=== PATIENT | female | born 1945 | race Caucasian/White ===

== ENCOUNTER 2019-09-28 04:59 | Day surgery (SDC) | payer MEDICARE, OTHER ==
[2019-09-24 11:58] LABS: BASOPHILS # (AUTO) 0.1 X10'3 (0-0.2); BASOPHILS % (AUTO) 1.5 % (0-1); EOSINOPHILS # (AUTO) 0.3 X10'3 (0-0.9); EOSINOPHILS % (AUTO) 4.8 % (0-6); HEMATOCRIT 37.4 % (35.0-45.0); HEMOGLOBIN 12.4 g/dl (12.0-16.0); LYMPHOCYTES # (AUTO) 1.1 X10'3 (1.1-4.8); MEAN CORPUSCULAR HEMOGLOBIN 27.9 PG (27.0-31.0); MEAN CORPUSCULAR HGB CONC 33.1 g/dL (33.0-36.5); MEAN CORPUSCULAR VOLUME 84.2 FL (78-98); MEAN PLATELET VOLUME 7.6 FL (7.4-10.4); MONOCYTES # (AUTO) 0.7 X10'3 (0-0.9); MONOCYTES % (AUTO) 13.6 % (2-12); NEUTROPHILS # (AUTO) 3.3 X10'3 (1.8-7.7); NEUTROPHILS % (AUTO) 60.1 % (42-75); PLATELET COUNT 255 X10'3 (140-440); RED BLOOD COUNT 4.44 X10'6 (4.20-5.60); RED CELL DISTRIBUTION WIDTH 16.2 % (11.5-14.5); WHITE BLOOD COUNT 5.5 X10'3 (4.5-11.0)
[2019-09-24 12:11] LABS: ALBUMIN 3.8 G/DL (3.4-5.0); ANION GAP 8 (8-16); BLOOD UREA NITROGEN 21 MG/DL (7-18); BUN/CREATININE RATIO 24.1 (6.6-38.0); CALCIUM 9.1 MG/DL (8.5-10.1); CHLORIDE 105 MMOL/L (99-107); CREATININE 0.87 MG/DL (0.40-0.90); GLUCOSE 81 MG/DL (70-104); SODIUM 142 MMOL/L (135-145); TOTAL CARBON DIOXIDE 29.1 MMOL/L (24-32); eGFR 64 ML/MIN
[2019-09-24 12:14] LABS: PARTIAL THROMBOPLASTIN TIME 44 SECONDS (22-32)
[~2019-09-28] VITALS: Ht 180.3 cm; Wt 88.6 kg
[2019-09-28] MEDS ORDERED: normal saline 1000ml 1,000 ML IV SCH (05:25)
[2019-09-28] MEDS ORDERED: fentaNYL/PF 50MCG/1 ML 2ML syringe IV ONE (05:25)
[2019-09-28] MEDS ORDERED: MIDAZolam 1mg/ml 10ml vial IV ONE (05:25)
--- NOTE | 2019-09-28 06:50 | NUR ---
Patient in NSR per EKG. Orders received to discharge patient to home.
== END 2019-09-28 06:52 | disposition home or self-care (01) ==
LOC: SSTAY O 04:59
PROVIDERS: ATTEND Internal Medicine Interventional Cardiology
DX: I48.19 Other persistent atrial fibrillation (principal); Z53.8 Procedure and treatment not carried out for other reasons; I49.9 Cardiac arrhythmia, unspecified
CPT/HCPCS: 36415; 80048; 85025; 85610; 85730; 93005

== ENCOUNTER 2021-01-23 05:30 | Inpatient (IN) | payer MEDICARE, OTHER ==
[2020-12-29 14:58] LABS: CLARITY,URINE CLEAR (Clear); COLOR,URINE YELLOW (Yellow); GLUCOSE, URINE NEGATIVE (Neg); KETONES,URINE NEGATIVE (Neg); LEUKOCYTE ESTERASE ,URINE TRACE (Neg); NITRITES, URINE NEGATIVE (Neg); OCCULT BLOOD,URINE TRACE-INTACT (Neg); PROTEIN,URINE NEGATIVE (Neg)
[2020-12-29 14:59] LABS: BASOPHILS # (AUTO) 0.1 X10'3 (0-0.2); BASOPHILS % (AUTO) 1.3 % (0-1); EOSINOPHILS # (AUTO) 0.2 X10'3 (0-0.9); EOSINOPHILS % (AUTO) 3.8 % (0-6); MEAN CORPUSCULAR HEMOGLOBIN 28.4 PG (27.0-31.0); MEAN CORPUSCULAR HGB CONC 32.9 g/dL (33.0-36.5); MEAN CORPUSCULAR VOLUME 86.3 FL (78-98); MONOCYTES # (AUTO) 0.7 X10'3 (0-0.9); NEUTROPHILS # (AUTO) 3.5 X10'3 (1.8-7.7); NEUTROPHILS % (AUTO) 63.9 % (42-75); PRE OP HEMOGLOBIN 12.9 g/dL (12.0-16.0); PRE OP PLATELET COUNT 249 X10'3 (140-440); RED BLOOD COUNT 4.52 X10'6 (4.20-5.60); RED CELL DISTRIBUTION WIDTH 16.5 % (11.5-14.5)
[2020-12-29 15:00] LABS: UA COLLECTION TYPE CLN CATCH MIDSTREAM
[2020-12-29 15:05] LABS: BACTERIA,URINE NONE SEEN /HPF (Neg); MUCUS STRANDS NONE SEEN /LPF (Neg); RBC,URINE 0-2 /HPF (0-2); SQUAMOUS EPITHELIAL CELL,UR FEW /LPF (FEW); WBC,URINE 0-4 /HPF (0-4)
[2020-12-29 15:12] LABS: ALBUMIN 3.8 G/DL (3.4-5.0); ALKALINE PHOSPHATASE 85 IU/L (46-116); BLOOD UREA NITROGEN 20 MG/DL (7-18); BUN/CREATININE RATIO 22.7 (6.6-38.0); CALCIUM 8.7 MG/DL (8.5-10.1); CHLORIDE 103 MMOL/L (99-107); CREATININE 0.88 MG/DL (0.40-0.90); PRE OP ALT 22 U/L (30-65); PRE OP ANION GAP 10 (8-16); PRE OP AST 19 U/L (10-37); PRE OP BILIRUB, TOTAL 0.5 MG/DL (0.0-1.0); PRE OP GLUCOSE 91 MG/DL (70-104); PRE OP POTASSIUM 3.8 MMOL/L (3.4-5.1); PRE OP SODIUM 142 MMOL/L (135-145); TOTAL PROTEIN 7.8 G/DL (6.4-8.2); eGFR 63 ML/MIN
[2021-01-23] VITALS (28 sets, daily range): BP systolic 121–171; BP diastolic 57–98
[~2021-01-23] VITALS: Ht 180.3 cm; Wt 96.8 kg
[~2021-01-23 05:30] MED LIST: CALC-97 PO; DOCUMENT DATE & TIME OF BETA-BLOCKER PO ONE; FERR324T8 PO; GABA-534 PO; HYDR-3972 PO; HYDR12.55 PO; HYDR200T80 PO; LEFL20TA PO; PRAV20TA4 PO; SOTA80TA73 PO; TRAZ-256 PO; WARF6TAB49 PO; ceFAZolin 2gm in dextrose, iso 50 ML IV ONE; famotidine 20mg tablet PO ONE
[2021-01-23] MEDS ORDERED: LIDOcaine 1% (10mg/ml) 2ml vial ONE (06:15)
[2021-01-23] MEDS: ringers solution, lacted 1,000 ML IV SCH ×3 (06:18→19:25)
[2021-01-23] MEDS ORDERED: BUPIVAcaine/PF 2.5 mg/ml (0.25%) 30ml vial ONE (06:45)
[2021-01-23] MEDS ORDERED: bacitracin 15gm ointment TP ONE (06:45)
[2021-01-23] MEDS ORDERED: midazolam 1 mg/ML 2ml injection ONE (07:27)
[2021-01-23] MEDS ORDERED: fentaNYL/PF 50MCG/1 ML 2ML syringe ONE ×3 (07:27→14:17)
[2021-01-23 07:28] LABS: PRE OP INR 1.1 INR; PRE OP PROTIME 11.8 SECONDS (9.0-12.0)
[2021-01-23] MEDS ORDERED: sevoflurane 250ml liquid IH ONE (07:35)
[2021-01-23] MEDS ORDERED: rocuronium 10mg/ml inj IV ONE (07:35)
[2021-01-23] MEDS ORDERED: ringers solution, lacted 1,000 ML IV SCH (08:25)
[2021-01-23] MEDS ORDERED: morphine 4 MG/ML inj SYRINge IV PRN (08:25)
[2021-01-23] MEDS ORDERED: ondansetron/PF 4mg/2ml inj IV PRN ×2 (08:25→16:35)
[2021-01-23] MEDS ORDERED: ROPIVAcaine 0.2%/PF PUMP/bolus 545 ML POPLITEAL SCH (08:25)
[2021-01-23] MEDS ORDERED: HYDROmorphone/PF 0.2 MG/ML SYRINGE IV PRN (08:25)
[2021-01-23] MEDS ORDERED: morphine 2 MG/ML inj. syringe IV PRN (08:25)
[2021-01-23] MEDS ORDERED: ROPIVAcaine 0.2% (10 MG/5 ML) BOLUS INJECTION POPLITEAL PRN (08:25)
[2021-01-23] MEDS ORDERED: dexamethasone sod phosphate 4mg/ml inj. ONE (09:35)
[2021-01-23] MEDS ORDERED: LIDOcaine 2% (20mg/ml) 5ml vial ONE (09:35)
[2021-01-23] MEDS ORDERED: propofol inj 20 ML IV ONE (09:35)
[2021-01-23] MEDS ORDERED: ondansetron/PF 4mg/2ml inj ONE (09:35)
[2021-01-23] MEDS ORDERED: glycopyrrolate 0.2mg/ml inj ONE (09:35)
[2021-01-23] MEDS ORDERED: ROPIVAcaine 0.5% (5mg/ml) 30ml vial ONE ×2 (09:36→13:37)
[2021-01-23] MEDS ORDERED: vancomycin 1,000mg inj ONE (09:36)
[2021-01-23] MEDS ORDERED: neostigmine methylsulfate 1 MG/ML 10ml vial ONE (09:36)
[2021-01-23] MEDS ORDERED: ePHEDrine 50MG/ML INJ. ONE (09:36)
[2021-01-23] MEDS ORDERED: ceFAZolin 1000mg inj ONE (13:37)
[2021-01-23] MEDS ORDERED: acetaminophen 1,000mg/100ml IV 100 ML IV ONE (13:40)
--- NOTE | 2021-01-23 14:22 | NUR ---
Received from OR via , accompanied by Anesthesiologist DR BOYD and report given by Anesthesiolgist. PT PRESENTS WITH PIV 20G RIGHT HAND. VSS. Addendum: 01/23/21 at 1436 by Marilyn Galvez RN, RN Amended: Links added.
[2021-01-23] MEDS ORDERED: HYDROcodone/acetaminophen 10/325mg tab PO PRN ×2 (14:50→16:35)
[2021-01-23] MEDS: HYDROmorphone/PF 0.2 MG/ML SYRINGE IV PRN ×2 (15:02→15:09)
[2021-01-23] MEDS ORDERED: magnesium hydroxide 30ml (MOM) UD suspension PO PRN (16:35)
[2021-01-23] MEDS ORDERED: acetaminophen 325mg tablet PO PRN (16:35)
[2021-01-23] MEDS ORDERED: diphenhydrAMINE 25mg capsule PO PRN ×2 (16:35)
[2021-01-23] MEDS ORDERED: bisacodyl 10mg suppository rectal RC PRN (16:35)
--- NOTE | 2021-01-23 16:42 | NUR ---
PATIENT HAS MET ALL CRITERIA FOR TRANSFER TO THE [facility]THOFLOOR. VSS. DRESSINGS INTACT. BED LOW, CALL LIGHT PRESENT AND 2 RAILS UP. TOMMIE OLIVO PRESENT TO ACCEPT CARE OF PATIENT AND REPORT HAS BEEN CALLED. ALL QUESTIONS ANSWERED TO ACCEPTING RN. Addendum: 01/23/21 at 1659 by Marilyn Arizmendi - TOMMIE RN Amended: Links added.
--- NOTE | 2021-01-23 17:05 | NUR ---
Patient just arrived to floor and made familiar with room, call light in reach, bed low and locked, patients family was already in room at the time of arrival. patient started on her post op vitals at this time, all within normal limits. Patient teaching including the OnQ pump and its use. Patient expressed verbal understanding of teaching. Patient had good cap refill, and temperature to left foot toes unable to palpate arteries below the knee do to dressing but patient has good pulse to left leg. Heart sounds S1S2, breathe sound clear inhale and exhale on anterior side. Patient A+Ox4.
--- NOTE | 2021-01-23 18:00 | NUR ---
Patient in room ORTHO 4013. I have received report from Sean REILLY and had the opportunity to ask questions and assume patient care. Addendum: 01/23/21 at 2133 by Moira Peña RN Amended: Links added.
[2021-01-23] MEDS ORDERED: potassium Cl 40MEQ/1/2NS 520ml 520 ML IV PRN (18:15)
[2021-01-23] MEDS ORDERED: magnesium Cl slow-release 64mg tablet PO PRN (18:15)
[2021-01-23] MEDS ORDERED: potassium Cl 20 mEq SR tablet PO PRN ×2 (18:15)
[2021-01-23] MEDS ORDERED: magnesium 4gm in 100ml NS 100 ML IV PRN (18:15)
--- NOTE | 2021-01-23 18:30 | NUR ---
Problems reprioritized. Patient report given, questions answered & plan of care reviewed with Moira REILLY.
--- NOTE | 2021-01-23 18:36 | NUR ---
Pt. awake A & O at this time. denies pain. CMS to rt leg assessed with warm toes and proximal region ( thigh region) but pt. denies sensation to toes and inability to move wiggle toes. Will continue monitoring. Call light within reach and bed in low position. Addendum: 01/23/21 at 2123 by Moira Peña RN Amended: Links added.
[2021-01-23] MEDS ORDERED: hydrALAZINE 20mg/ml inj. IV PRN (18:55)
[2021-01-23] MEDS ORDERED: hydrALAZINE 20mg/ml inj. IV ONE (18:55)
[2021-01-23] MEDS: K and/or MAG REPLACEMENT MC SCH (20:00)
[2021-01-23] MEDS: gabapentin 400mg capsule PO SCH (20:40)
[2021-01-23] MEDS: calcium carbonate/vitamin D3 tablet PO SCH (20:43)
[2021-01-23] MEDS ORDERED: warfarin 3mg tablet PO ONE (21:00)
[2021-01-23] MEDS ORDERED: warfarin 3mg tablet PO SCH (21:00)
[2021-01-23] MEDS ORDERED: sennosides 8.6mg tablet PO SCH (21:00)
[2021-01-23] MEDS ORDERED: traZODone 150mg tablet PO SCH (21:00)
--- NOTE | 2021-01-23 22:36 | NUR ---
Pt. still unable to wiggle toes, no c/o pain, and no sensation but warm to touch. Minimal drainage noted to dressing. Extremity elevated. Addendum: 01/24/21 at 0359 by Moira Peña RN Amended: Links added.
[2021-01-23] MEDS: ceFAZolin/D5W- 1GM premix 50 ML IV SCH (23:43)
[2021-01-23] MEDS: sotalol 80mg tablet PO SCH (23:44)
[2021-01-24] VITALS: BP 121/98
--- NOTE | 2021-01-24 | NUR ---
Pt. able to move extremity but still no sensation to touch on toes but warm to touch. Addendum: 01/24/21 at 0402 by Moira Peña RN Amended: Links added.
[2021-01-24] MEDS: HYDROcodone/acetaminophen 10/325mg tab PO PRN ×2 (01:48→08:17)
[2021-01-24 04:00] VITALS: BP 150/70
--- NOTE | 2021-01-24 04:03 | NUR ---
Movement and warmth to extremity present. Addendum: 01/24/21 at 0417 by Moira Peña RN Amended: Links added.
--- NOTE | 2021-01-24 06:00 | NUR ---
Problems reprioritized. Patient report given, questions answered & plan of care reviewed with Yojana REILLY. Addendum: 01/24/21 at 0709 by Moira Peña RN Amended: Links added.
--- NOTE | 2021-01-24 06:58 | NUR ---
Patient in room ORTHO 4013. I have received report from Moira REILLY and had the opportunity to ask questions and assume patient care.
[2021-01-24 07:00] VITALS: BP 131/51
[2021-01-24 07:01] LABS: BASOPHILS # (AUTO) 0.1 X10'3 (0-0.2); BASOPHILS % (AUTO) 0.7 % (0-1); EOSINOPHILS % (AUTO) 0.1 % (0-6); HEMATOCRIT 34.4 % (35.0-45.0); HEMOGLOBIN 11.5 g/dl (12.0-16.0); LYMPHOCYTES % (AUTO) 9.7 % (21-51); MEAN CORPUSCULAR HEMOGLOBIN 28.8 PG (27.0-31.0); MEAN CORPUSCULAR HGB CONC 33.4 g/dL (33.0-36.5); MEAN CORPUSCULAR VOLUME 86.4 FL (78-98); MEAN PLATELET VOLUME 8.2 FL (7.4-10.4); MONOCYTES # (AUTO) 1.3 X10'3 (0-0.9); MONOCYTES % (AUTO) 12.8 % (2-12); NEUTROPHILS # (AUTO) 7.8 X10'3 (1.8-7.7); NEUTROPHILS % (AUTO) 76.7 % (42-75); PLATELET COUNT 199 X10'3 (140-440); RED BLOOD COUNT 3.98 X10'6 (4.20-5.60); RED CELL DISTRIBUTION WIDTH 16.3 % (11.5-14.5); WHITE BLOOD COUNT 10.1 X10'3 (4.5-11.0)
[2021-01-24 07:22] LABS: ALANINE AMINOTRANSFERASE 19 U/L (12-78); ALBUMIN 3.5 G/DL (3.4-5.0); ALBUMIN/GLOBULIN RATIO 1.1 (1.1-1.5); ALKALINE PHOSPHATASE 61 IU/L (46-116); ANION GAP 9 (8-16); ASPARTATE AMINO TRANSFERASE 18 U/L (10-37); BILIRUBIN,TOTAL 0.6 MG/DL (0.1-1.0); BLOOD UREA NITROGEN 17 MG/DL (7-18); BUN/CREATININE RATIO 19.3 (6.6-38.0); CALCIUM 8.8 MG/DL (8.5-10.1); CHLORIDE 106 MMOL/L (99-107); CREATININE 0.88 MG/DL (0.40-0.90); GLUCOSE 105 MG/DL (70-104); PHOSPHORUS 3.6 MG/DL (2.3-4.5); POTASSIUM 3.6 MMOL/L (3.5-5.1); SODIUM 143 MMOL/L (135-145); TOTAL CARBON DIOXIDE 27.8 MMOL/L (24-32); TOTAL PROTEIN 6.8 G/DL (6.4-8.2); eGFR 63 ML/MIN
[2021-01-24] MEDS ORDERED: FERROUS FUMARATE PO SCH (08:00)
[2021-01-24] MEDS ORDERED: hydroxychloroquine 200mg tablet PO SCH (08:00)
[2021-01-24] MEDS: K and/or MAG REPLACEMENT MC SCH (08:00)
[2021-01-24] MEDS ORDERED: atorvastatin 10mg tablet PO SCH (08:00)
[2021-01-24] MEDS ORDERED: leflunomide 20mg tablet PO SCH (08:00)
[2021-01-24] MEDS ORDERED: HYDROchlorothiazide 12.5mg capsule PO SCH (08:00)
[2021-01-24] MEDS: ceFAZolin/D5W- 1GM premix 50 ML IV SCH (08:17)
[2021-01-24] MEDS: gabapentin 400mg capsule PO SCH (08:21)
[2021-01-24] MEDS: sotalol 80mg tablet PO SCH (08:24)
[2021-01-24] MEDS: calcium carbonate/vitamin D3 tablet PO SCH (08:24)
[2021-01-24] MEDS ORDERED: aspirin 325mg tablet PO SCH (08:30)
--- NOTE | 2021-01-24 13:25 | NUR ---
Patient and nurse at bedside. Patient was educated on the removal of On Q. Supplies were given for surgical site and gauze n tape for the On Q. All discharge instructions and follow up have been reviewed and gone over. No new medications ordered. PIV removed and educated on, as On Q is the same procedure. Patient was assisted dressed and will be escorted via wheelchair to [facility]. We will continue to monitor.
[2021-01-24] MEDS ORDERED: ondansetron 4mg rapidly disintigrating tab PO PRN (13:30)
--- NOTE | 2021-01-24 14:29 | NUR ---
Patient OK to discharge per MD orders. Patient was able to dress self and transfer into wheelchair. All discharge instructions given to patient and significant other. All personal items collected and sent with patient. Patient was transported via wheelchair and nurse to [facility] and put into private vehicle along with family member.
--- NOTE | 2021-01-27 15:58 | NUR ---
CASE MANAGEMENT DISCHARGE FOLLOW UP: Spoke with pt via telephone. Reports that she is doing "not so good," states pain level is tolerable with pain medication, however pt states that mobility is terrible, she states that she has no strength in her right leg or in both arms and her is having to help her transfer from recliner to BSC (that went out and purchased); denies CP, SOB, fever/chills, s/sx of infection. Pt states OnQ pump is out. Pt asks if it is normal to have itching while taking Cefalin. Advised pt that itching is a possible side effect. Pt denies any associated swelling, rash, tight throat, difficulty breathing. Pt states that the itching comes and goes and is around the outside of her mouth, back, and side (without rash). She states that she has left a message for her surgeon who prescribed the antibiotic, but has heard nothing back yet. Advised that benadryl was ordered for pt during hospitalization for itching and can help in the interim, warned pt that medication can be sedating, she verbalizes understanding. Verbalizes understanding of s/sx requiring further evaluation/emergent assistance, advised that pt seek emergent assistance if symptoms worsen beyond itching and she has not heard from her surgeon. Advised that surgeon may either prescribe an antihistamine or change antibiotic. At this time, spoke with pt's who expresses concern about his ability to care for his as she is requiring extensive care, states has not heard from home health. He states that he purchase pt a BSC and a hospital bed due to her mobility limitations. He states that the other day the pt slid to the floor and he had to call paramedics to lift het and that she has been in a recliner ever since. Asked if pt is able to use walker, he states that pt has no strength in arms or right leg and that it just ends up being in the way. He states that when pt was discharged that they had a difficult time getting pt into the car, she states that the nurse who helped get pt into front seat had difficulty and the pt almost fell. He states that if pt has to go anywhere he will have to arrange medical transport as he cannot get her back into the car on his own. He states that he is considering getting private care for pt as he cannot continue as it is. Advised him that this nurse will contact the home health agency and find out when they can get to pt, likely not until tomorrow due to the lateness of the day, he verbalizes understanding. States no further questions/concerns at this time. 1615 T/c to [facility], they state SOC for pt is tomorrow, they will call and notify pt's .
== END 2021-01-24 14:30 | disposition home health service (06) | DRG 469 ==
LOC: PAS 05:30 → EDSTATUS 07:30 → ORTHO 4S 16:31
PROVIDERS: ADMIT Podiatrist Foot & Ankle Surgery; ATTEND Podiatrist Foot & Ankle Surgery
PROC: 0MQT0ZZ Repair Left Foot Bursa and Ligament, Open Approach (ICD-10-PCS; 2021-01-23)
PROC: 3E0T3BZ Introduction of Anesthetic Agent into Peripheral Nerves and Plexi, Percutaneous Approach (ICD-10-PCS; 2021-01-23)
PROC: 0SRG0J9 Replacement of Left Ankle Joint with Synthetic Substitute, Cemented, Open Approach (ICD-10-PCS; principal; 2021-01-23 07:35)
DX: M19.072 Primary osteoarthritis, left ankle and foot (principal); I48.20 Chronic atrial fibrillation, unspecified; D64.9 Anemia, unspecified; E78.5 Hyperlipidemia, unspecified; G62.9 Polyneuropathy, unspecified; I10 Essential (primary) hypertension; Z96.652 Presence of left artificial knee joint; M06.9 Rheumatoid arthritis, unspecified; M21.072 Valgus deformity, not elsewhere classified, left ankle; Z79.01 Long term (current) use of anticoagulants; Z79.899 Other long term (current) drug therapy; Z80.3 Family history of malignant neoplasm of breast; Z82.5 Family history of asthma and other chronic lower respiratory diseases; Z87.891 Personal history of nicotine dependence; Z88.0 Allergy status to penicillin
CPT/HCPCS: 36415; 71046; 73610; 76000; 80053; 81001; 82948; 83735; 84100; 85025; 85610; 85730; 87081; 87088; 97161; 97530; G0378; J0131; J0690; J1100; J1170; J2001; J2250; J2405; J2704; J2710; J2795; J3010; J3370; J3490; J7120

== ENCOUNTER 2021-07-16 11:26 | Inpatient (IN) | payer MEDICARE, OTHER ==
[~2021-07-16] VITALS: Ht 180.3 cm; Wt 86.4 kg
[~2021-07-16 11:26] MED LIST changes: -DOCUMENT DATE & TIME OF BETA-BLOCKER PO ONE; -ceFAZolin 2gm in dextrose, iso 50 ML IV ONE; -famotidine 20mg tablet PO ONE
[2021-07-16 11:59] LABS: BASOPHILS # (AUTO) 0.1 X10'3 (0-0.2); BASOPHILS % (AUTO) 1.3 % (0-1); EOSINOPHILS # (AUTO) 0.2 X10'3 (0-0.9); EOSINOPHILS % (AUTO) 3.1 % (0-6); HEMATOCRIT 31.4 % (35.0-45.0); HEMOGLOBIN 10.4 g/dl (12.0-16.0); LYMPHOCYTES # (AUTO) 1.1 X10'3 (1.1-4.8); LYMPHOCYTES % (AUTO) 13.6 % (21-51); MEAN CORPUSCULAR HEMOGLOBIN 27.4 PG (27.0-31.0); MEAN CORPUSCULAR HGB CONC 33.2 g/dL (33.0-36.5); MEAN CORPUSCULAR VOLUME 82.6 FL (78-98); MEAN PLATELET VOLUME 6.7 FL (7.4-10.4); MONOCYTES % (AUTO) 12.4 % (2-12); NEUTROPHILS # (AUTO) 5.7 X10'3 (1.8-7.7); NEUTROPHILS % (AUTO) 69.6 % (42-75); PLATELET COUNT 477 X10'3 (140-440); WHITE BLOOD COUNT 8.2 X10'3 (4.5-11.0)
[2021-07-16 12:18] LABS: ALANINE AMINOTRANSFERASE 12 U/L (12-78); ALBUMIN 3.1 G/DL (3.4-5.0); ALBUMIN/GLOBULIN RATIO 0.8 (1.1-1.5); ALKALINE PHOSPHATASE 78 IU/L (46-116); ANION GAP 10 (8-16); ASPARTATE AMINO TRANSFERASE 0 U/L (10-37); BILIRUBIN,TOTAL 0.8 MG/DL (0.1-1.0); BLOOD UREA NITROGEN 12 MG/DL (7-18); BUN/CREATININE RATIO 15.2 (6.6-38.0); CALCIUM 8.6 MG/DL (8.5-10.1); CHLORIDE 106 MMOL/L (99-107); CREATININE 0.79 MG/DL (0.40-0.90); GLUCOSE 124 MG/DL (70-104); MAGNESIUM 2.2 MG/DL (1.5-2.4); SODIUM 149 MMOL/L (135-145); TOTAL CARBON DIOXIDE 33.2 MMOL/L (24-32); eGFR 71 ML/MIN
[2021-07-16 12:20] LABS: POTASSIUM 1.9 MMOL/L (3.5-5.1)
[2021-07-16] MEDS ORDERED: potassium Cl 40MEQ/1/2NS 520ml 520 ML IV PRN (12:30)
[2021-07-16] MEDS ORDERED: magnesium 2GM in 50ml NS 50 ML IV ONE (12:30)
[2021-07-16 12:37] LABS: ANISOCYTOSIS 2+; PLATELET ESTIMATE INCREASED
[2021-07-16 12:38] LABS: ELLIPTOCYTES 1+; POLYCHROMASIA 1+; SCHISTOCYTES 1+; TEAR DROP CELLS FEW
[2021-07-16] MEDS: potassium Cl 20 mEq SR tablet PO PRN (12:50)
[2021-07-16] MEDS ORDERED: HYDROcodone/acetaminophen 5mg/325mg tablet PO ONE (13:05)
[2021-07-16] MEDS ORDERED: potassium Cl 20 mEq SR tablet PO STA (13:06)
[2021-07-16] MEDS ORDERED: [UNRECOGNIZED DRUG - CODE] IV (13:14)
[2021-07-16] MEDS ORDERED: VALS320T17 PO (13:18)
[2021-07-16] MEDS ORDERED: OXYC5TAB2 PO (13:18)
[2021-07-16] MEDS ORDERED: GABA300C PO (13:18)
[2021-07-16] MEDS ORDERED: HYDR200T84 PO (13:18)
[2021-07-16] MEDS ORDERED: PRAV20TA4 PO (13:18)
[2021-07-16] MEDS ORDERED: TRAZ-251 PO (13:18)
[2021-07-16] MEDS ORDERED: PANT40TA54 PO (13:18)
[2021-07-16] MEDS ORDERED: WARF4TAB69 PO (13:19)
[2021-07-16] MEDS ORDERED: mag hydrox/Alum hydrox/simeth 30ml oral suspension PO PRN (14:10)
[2021-07-16] MEDS ORDERED: ondansetron/PF 4mg/2ml inj IV PRN (14:10)
[2021-07-16] MEDS ORDERED: magnesium hydroxide 30ml (MOM) UD suspension PO PRN (14:10)
[2021-07-16] MEDS: potassium Cl 20mEq in NS 1,000 ML IV SCH (15:16)
--- NOTE | 2021-07-16 16:00 | NUR ---
pt iv not working ,tried to flush the line .pump were not beeping ,pt iv meds still pending .will start the new iv line.
--- NOTE | 2021-07-16 16:00 | NUR ---
Note placido in EDM - 07/16/21 at 1616 by ALIYA BIOTRONIK INTERROGATION CAN NOT BE DONE WE DON'T HAVE MACHINE AVAILABLE TO INTERROGATE THE ICD .FOR ANY QUES CALL FARSHAD HOLLAND [employer] AT [phone].
--- NOTE | 2021-07-16 17:00 | NUR ---
started new iv line 22 g lft wrist .
[2021-07-16] MEDS: ceFAZolin 2gm in dextrose, iso 50 ML IV SCH (18:21)
[2021-07-16 19:00] VITALS: BP 143/78
[2021-07-16] MEDS ORDERED: heparin, porcine 5000 units/ml vial SQ SCH (20:00)
[2021-07-16] MEDS: docusate sod 100mg capsule PO SCH (20:00)
[2021-07-16] MEDS ORDERED: warfarin 4mg tablet PO SCH (21:00)
[2021-07-16] MEDS: pravastatin 40mg tablet PO SCH (21:00)
[2021-07-16] MEDS: oxyCODONE IR 5mg (immed. release) tablet PO PRN (21:43)
[2021-07-16] MEDS: gabapentin 300mg capsule PO SCH (21:43)
[2021-07-16] MEDS: traZODone 50mg tablet PO SCH (21:43)
[2021-07-16] MEDS: calcium carbonate/vitamin D3 tablet PO SCH (21:43)
[2021-07-16 23:00] VITALS: BP 136/76
[2021-07-17] MEDS: acetaminophen 325mg tablet PO PRN ×3 (00:01→20:57)
[2021-07-17] MEDS: ceFAZolin 2gm in dextrose, iso 50 ML IV SCH ×4 (00:02→23:58)
[2021-07-17] MEDS: potassium Cl 20mEq in NS 1,000 ML IV SCH ×2 (00:02→14:50)
[2021-07-17] MEDS: Melatonin 3mg tablet PO PRN ×2 (02:02→20:58)
[2021-07-17 02:34] LABS: BASOPHILS # (AUTO) 0.1 X10'3 (0-0.2); BASOPHILS % (AUTO) 0.7 % (0-1); EOSINOPHILS # (AUTO) 0.3 X10'3 (0-0.9); EOSINOPHILS % (AUTO) 4.2 % (0-6); HEMATOCRIT 25.3 % (35.0-45.0); HEMOGLOBIN 8.3 g/dl (12.0-16.0); LYMPHOCYTES # (AUTO) 1.2 X10'3 (1.1-4.8); LYMPHOCYTES % (AUTO) 15.1 % (21-51); MEAN CORPUSCULAR HEMOGLOBIN 27.3 PG (27.0-31.0); MEAN CORPUSCULAR VOLUME 82.7 FL (78-98); MEAN PLATELET VOLUME 6.7 FL (7.4-10.4); MONOCYTES # (AUTO) 0.9 X10'3 (0-0.9); MONOCYTES % (AUTO) 11.8 % (2-12); NEUTROPHILS # (AUTO) 5.5 X10'3 (1.8-7.7); NEUTROPHILS % (AUTO) 68.2 % (42-75); PLATELET COUNT 411 X10'3 (140-440); RED BLOOD COUNT 3.06 X10'6 (4.20-5.60); RED CELL DISTRIBUTION WIDTH 19.8 % (11.5-14.5)
[2021-07-17 02:47] LABS: ALBUMIN 2.6 G/DL (3.4-5.0); ANION GAP 8 (8-16); BLOOD UREA NITROGEN 12 MG/DL (7-18); BUN/CREATININE RATIO 15.8 (6.6-38.0); CALCIUM 8.2 MG/DL (8.5-10.1); CHLORIDE 107 MMOL/L (99-107); CREATININE 0.76 MG/DL (0.40-0.90); GLUCOSE 114 MG/DL (70-104); SODIUM 146 MMOL/L (135-145); TOTAL CARBON DIOXIDE 31.3 MMOL/L (24-32); eGFR 74 ML/MIN
[2021-07-17 02:54] LABS: POTASSIUM 2.7 MMOL/L (3.5-5.1)
[2021-07-17 03:00] VITALS: BP 157/78
[2021-07-17 03:26] LABS: ANISOCYTOSIS 2+; ELLIPTOCYTES FEW; PLATELET ESTIMATE NORMAL; POLYCHROMASIA 1+; SCHISTOCYTES FEW
[2021-07-17 06:00] VITALS: BP 159/90
[2021-07-17] MEDS: hydroxychloroquine 200mg tablet PO SCH (08:00)
[2021-07-17] MEDS ORDERED: warfarin 4mg tablet PO SCH (08:00)
[2021-07-17] MEDS: potassium Cl 20 mEq SR tablet PO PRN ×3 (08:57→17:31)
[2021-07-17] MEDS: losartan 50mg tablet PO SCH (08:58)
[2021-07-17] MEDS: pantoprazole 40mg Tablet.DR PO SCH (08:58)
[2021-07-17] MEDS: gabapentin 300mg capsule PO SCH ×3 (08:58→20:20)
[2021-07-17] MEDS: calcium carbonate/vitamin D3 tablet PO SCH ×2 (08:58→20:18)
[2021-07-17] MEDS: docusate sod 100mg capsule PO SCH ×2 (08:58→20:00)
[2021-07-17 11:00] VITALS: BP 156/83
[2021-07-17] MEDS: oxyCODONE IR 5mg (immed. release) tablet PO PRN ×2 (12:27→22:04)
[2021-07-17 15:00] VITALS: BP 141/78
--- NOTE | 2021-07-17 17:02 | NUR ---
PAGER ID: [phone] MESSAGE: [id number] Migel Smith- What do you want done for wound care on the Left foot external fixator? Braydon
[2021-07-17 18:00] VITALS: BP 156/82
--- NOTE | 2021-07-17 18:15 | NUR ---
Problems reprioritized. Patient report given, questions answered & plan of care reviewed with Nusrat REILLY.
[2021-07-17] MEDS: lactobacillus rhamnosus 10,000 MMU CELLS/CAPSULE PO SCH (20:17)
[2021-07-17] MEDS: traZODone 50mg tablet PO SCH (20:20)
[2021-07-17] MEDS: pravastatin 40mg tablet PO SCH (21:00)
[2021-07-17] MEDS ORDERED: warfarin 3mg tablet PO SCH (21:00)
[2021-07-17 22:00] VITALS: BP 160/94
--- NOTE | 2021-07-17 23:42 | NUR ---
reviewed and edited SRN assessment findings.
[2021-07-18 02:00] VITALS: BP 171/80
[2021-07-18] MEDS: potassium Cl 20mEq in NS 1,000 ML IV SCH ×2 (02:29→06:10)
[2021-07-18 05:10] VITALS: BP 169/91
--- NOTE | 2021-07-18 06:17 | NUR ---
Problems reprioritized. Patient report given, questions answered & plan of care reviewed with Ignacio.
--- NOTE | 2021-07-18 06:30 | NUR ---
Patient in room PCU 3011. I have received report from TOMMIE Silverio and had the opportunity to ask questions and assume patient care.
[2021-07-18 06:54] LABS: BASOPHILS # (AUTO) 0.1 X10'3 (0-0.2); BASOPHILS % (AUTO) 0.6 % (0-1); EOSINOPHILS # (AUTO) 0.3 X10'3 (0-0.9); EOSINOPHILS % (AUTO) 3.1 % (0-6); HEMATOCRIT 24.4 % (35.0-45.0); HEMOGLOBIN 8.2 g/dl (12.0-16.0); LYMPHOCYTES # (AUTO) 0.7 X10'3 (1.1-4.8); LYMPHOCYTES % (AUTO) 7.9 % (21-51); MEAN CORPUSCULAR HEMOGLOBIN 27.9 PG (27.0-31.0); MEAN CORPUSCULAR HGB CONC 33.5 g/dL (33.0-36.5); MEAN CORPUSCULAR VOLUME 83.3 FL (78-98); MEAN PLATELET VOLUME 6.8 FL (7.4-10.4); MONOCYTES % (AUTO) 10.8 % (2-12); NEUTROPHILS # (AUTO) 7.4 X10'3 (1.8-7.7); NEUTROPHILS % (AUTO) 77.6 % (42-75); PLATELET COUNT 366 X10'3 (140-440); RED BLOOD COUNT 2.94 X10'6 (4.20-5.60); RED CELL DISTRIBUTION WIDTH 20.2 % (11.5-14.5); WHITE BLOOD COUNT 9.5 X10'3 (4.5-11.0)
[2021-07-18 07:01] VITALS: BP 160/86
[2021-07-18 07:05] LABS: ALBUMIN 2.7 G/DL (3.4-5.0); ANION GAP 9 (8-16); BLOOD UREA NITROGEN 12 MG/DL (7-18); BUN/CREATININE RATIO 17.9 (6.6-38.0); CALCIUM 8.6 MG/DL (8.5-10.1); CHLORIDE 110 MMOL/L (99-107); CREATININE 0.67 MG/DL (0.40-0.90); GLUCOSE 111 MG/DL (70-104); POTASSIUM 3.7 MMOL/L (3.5-5.1); SODIUM 146 MMOL/L (135-145); TOTAL CARBON DIOXIDE 27.1 MMOL/L (24-32); eGFR 86 ML/MIN
--- NOTE | 2021-07-18 07:55 | NUR ---
PAGER ID: [phone] MESSAGE: [phone]- Migel Smith- HRup in the 200's when up to bsc., did c/o SOB 96% on RA and chest pain unchanged with exertion. EKG was done 0530 as well as trop. negative. currernt HR 114 in bed. states takes sotatol but not since ur.- ruth 1900
[2021-07-18] MEDS: pantoprazole 40mg Tablet.DR PO SCH (08:20)
[2021-07-18] MEDS: gabapentin 300mg capsule PO SCH ×2 (08:20→14:08)
[2021-07-18] MEDS: lactobacillus rhamnosus 10,000 MMU CELLS/CAPSULE PO SCH (08:20)
[2021-07-18] MEDS: docusate sod 100mg capsule PO SCH (08:20)
[2021-07-18] MEDS: calcium carbonate/vitamin D3 tablet PO SCH (08:20)
[2021-07-18] MEDS: acetaminophen 325mg tablet PO PRN (08:20)
[2021-07-18] MEDS: hydroxychloroquine 200mg tablet PO SCH (08:21)
[2021-07-18] MEDS: losartan 50mg tablet PO SCH (08:21)
[2021-07-18] MEDS: ceFAZolin 2gm in dextrose, iso 50 ML IV SCH ×2 (08:21→15:06)
[2021-07-18] MEDS ORDERED: SOTA80TA PO (09:36)
[2021-07-18] MEDS ORDERED: sotalol 80mg tablet PO SCH (09:37)
[2021-07-18] MEDS: oxyCODONE IR 5mg (immed. release) tablet PO PRN ×2 (10:02→14:08)
--- NOTE | 2021-07-18 10:13 | NUR ---
Dr. Giang in to see patient and aware patient HR and BP. Sotalol was given and will continue to monitor. Per Dr. Giang patient will dc today if HR decreases. She is also aware patients wound vac has not been changed. Patient reports she has home health arranged and her home health nurse will change wound vac today when she returns home.
[2021-07-18] MEDS ORDERED: CEFA1VIA2 IV (11:21)
[2021-07-18 11:45] VITALS: BP 155/71
[2021-07-18 15:00] VITALS: BP 146/81
--- NOTE | 2021-07-18 15:42 | NUR ---
Patient is alert and oriented in no apparent acute distress with no complaints. Discussed with patient and spouse at bedside discharge teaching and new prescription. Patient verbalized understanding of teaching. All questions answered to best of ability and patient states no other questions. Patient IV to left arm dc'd. PICC to LESTER intact. Woud vac patent and intact. Patient dc'd with all personal belongings.
[2021-07-18] MEDS ORDERED: warfarin 7.5mg tablet PO ONE (21:00)
== END 2021-07-18 16:00 | disposition home health service (06) | DRG 641 ==
LOC: ER 11:26 → ED HOLD 15:29 → PCU 3S 19:55
PROVIDERS: ADMIT Family Medicine; ATTEND Family Medicine
DX: E87.6 Hypokalemia (principal); I10 Essential (primary) hypertension; E78.5 Hyperlipidemia, unspecified; I48.0 Paroxysmal atrial fibrillation; L08.9 Local infection of the skin and subcutaneous tissue, unspecified; Z96.659 Presence of unspecified artificial knee joint; T50.2X5A Adverse effect of carbonic-anhydrase inhibitors, benzothiadiazides and other diuretics, initial encounter; G89.29 Other chronic pain; G62.9 Polyneuropathy, unspecified; K21.9 Gastro-esophageal reflux disease without esophagitis; M06.9 Rheumatoid arthritis, unspecified; Z79.01 Long term (current) use of anticoagulants; Z79.899 Other long term (current) drug therapy; Y92.89 Other specified places as the place of occurrence of the external cause
CPT/HCPCS: 36415; 80048; 80053; 83605; 83735; 84132; 84145; 84484; 85008; 85025; 85610; 87040; 87081; 93005; 96365; 99285; G0378; J3475; J3480

== ENCOUNTER 2021-07-20 10:09 | Emergency (ER) | payer MEDICARE, OTHER ==
[~2021-07-20] VITALS: Ht 167.6 cm; Wt 86.0 kg
[~2021-07-20 10:09] MED LIST changes: -FERR324T8 PO; -GABA-534 PO; +GABA300C PO; -HYDR-3972 PO; -HYDR12.55 PO; -HYDR200T80 PO; +HYDR200T84 PO; -LEFL20TA PO; +OXYC5TAB2 PO; +PANT40TA54 PO; +SOTA80TA PO; -SOTA80TA73 PO; +TRAZ-251 PO; -TRAZ-256 PO; +VALS320T17 PO; +WARF4TAB69 PO
--- NOTE | 2021-07-20 10:50 | NUR ---
PICC RN PAGED
--- NOTE | 2021-07-20 12:17 | NUR ---
2ND PAGE SENT TO PICC RN, NURSING SUPP NOTIFIED
--- NOTE | 2021-07-20 13:10 | NUR ---
PICC RN AT BEDSIDE PLACING AN EXTENDED MIDLINE.
--- NOTE | 2021-07-20 15:08 | NUR ---
after several conversations with pt she finally stated she wanted to have lab work, ultrasound and chest xray which has been pushing to have done. dr robles aware
[2021-07-20 16:05] LABS: BASOPHILS # (AUTO) 0.1 X10'3 (0-0.2); BASOPHILS % (AUTO) 0.8 % (0-1); EOSINOPHILS # (AUTO) 0.6 X10'3 (0-0.9); EOSINOPHILS % (AUTO) 7.5 % (0-6); HEMATOCRIT 24.5 % (35.0-45.0); HEMOGLOBIN 8.1 g/dl (12.0-16.0); LYMPHOCYTES # (AUTO) 1.1 X10'3 (1.1-4.8); LYMPHOCYTES % (AUTO) 13.1 % (21-51); MEAN CORPUSCULAR HEMOGLOBIN 27.8 PG (27.0-31.0); MEAN CORPUSCULAR HGB CONC 33.2 g/dL (33.0-36.5); MEAN CORPUSCULAR VOLUME 83.9 FL (78-98); MONOCYTES % (AUTO) 11.4 % (2-12); NEUTROPHILS # (AUTO) 5.8 X10'3 (1.8-7.7); NEUTROPHILS % (AUTO) 67.2 % (42-75); PLATELET COUNT 348 X10'3 (140-440); RED BLOOD COUNT 2.92 X10'6 (4.20-5.60); RED CELL DISTRIBUTION WIDTH 19.9 % (11.5-14.5); WHITE BLOOD COUNT 8.6 X10'3 (4.5-11.0)
[2021-07-20 16:15] LABS: ALBUMIN 2.8 G/DL (3.4-5.0); ANION GAP 10 (8-16); BLOOD UREA NITROGEN 12 MG/DL (7-18); CALCIUM 8.7 MG/DL (8.5-10.1); CHLORIDE 107 MMOL/L (99-107); CREATININE 0.63 MG/DL (0.40-0.90); GLUCOSE 100 MG/DL (70-104); POTASSIUM 3.3 MMOL/L (3.5-5.1); SODIUM 144 MMOL/L (135-145); TOTAL CARBON DIOXIDE 27.4 MMOL/L (24-32); eGFR > 90 ML/MIN
[2021-07-20] MEDS ORDERED: potassium Cl 20 mEq SR tablet PO STA (17:00)
[2021-07-20 17:11] VITALS: BP 161/98
[2021-07-20 17:42] LABS: PLATELET ESTIMATE NORMAL
[2021-07-20 17:43] LABS: ANISOCYTOSIS 2+
[2021-07-20 17:44] LABS: ELLIPTOCYTES 1+; SCHISTOCYTES 1+; TEAR DROP CELLS FEW
[2021-07-20 17:45] LABS: BURR CELLS FEW; POLYCHROMASIA 1+
== END 2021-07-20 17:36 | disposition home or self-care (01) ==
LOC: ER 10:10
DX: T82.524A Displacement of infusion catheter, initial encounter (principal); R06.02 Shortness of breath; E87.6 Hypokalemia; I10 Essential (primary) hypertension; Z79.01 Long term (current) use of anticoagulants; Z79.899 Other long term (current) drug therapy; Z87.81 Personal history of (healed) traumatic fracture; Z98.890 Other specified postprocedural states; Y84.8 Other medical procedures as the cause of abnormal reaction of the patient, or of later complication, without mention of misadventure at the time of the procedure; Y92.89 Other specified places as the place of occurrence of the external cause
CPT/HCPCS: 36415; 71045; 80048; 85008; 85025; 93005; 99285

== ENCOUNTER 2022-07-16 07:57 | Day surgery (SDC) | payer MEDICARE, OTHER ==
[2022-07-16] VITALS (12 sets, daily range): BP systolic 130–153; BP diastolic 67–78
[2022-07-16] MEDS ORDERED: MIDAZolam 1mg/ml 10ml vial IV ONE ×2 (08:20→09:50)
[2022-07-16] MEDS ORDERED: normal saline 1000ml 1,000 ML IV SCH ×2 (08:20→09:50)
[2022-07-16] MEDS ORDERED: fentaNYL/PF 50MCG/1 ML 2ML syringe IV ONE ×2 (08:20→09:50)
[2022-07-16] MEDS ORDERED: FERR325T28 PO (08:41)
[2022-07-16] MEDS ORDERED: POTA-207 PO (08:41)
[2022-07-16] MEDS ORDERED: FURO40TA4 PO (08:41)
[2022-07-16] MEDS ORDERED: AMIO200T61 PO (08:41)
[2022-07-16 09:10] LABS: BASOPHILS # (AUTO) 0.1 X10'3 (0-0.2); BASOPHILS % (AUTO) 1.4 % (0-1); EOSINOPHILS % (AUTO) 0.9 % (0-6); HEMATOCRIT 42.1 % (35.0-45.0); HEMOGLOBIN 13.7 g/dl (12.0-16.0); LYMPHOCYTES # (AUTO) 0.8 X10'3 (1.1-4.8); LYMPHOCYTES % (AUTO) 18.6 % (21-51); MEAN CORPUSCULAR HGB CONC 32.6 g/dL (33.0-36.5); MEAN PLATELET VOLUME 7.8 FL (7.4-10.4); MONOCYTES # (AUTO) 0.6 X10'3 (0-0.9); NEUTROPHILS # (AUTO) 2.9 X10'3 (1.8-7.7); NEUTROPHILS % (AUTO) 65.1 % (42-75); PLATELET COUNT 214 X10'3 (140-440); RED BLOOD COUNT 4.74 X10'6 (4.20-5.60); RED CELL DISTRIBUTION WIDTH 18.3 % (11.5-14.5); WHITE BLOOD COUNT 4.5 X10'3 (4.5-11.0)
[2022-07-16 09:14] LABS: ALBUMIN 3.8 G/DL (3.4-5.0); ANION GAP 6 (8-16); BLOOD UREA NITROGEN 23 MG/DL (7-18); BUN/CREATININE RATIO 19.8 (6.6-38.0); CALCIUM 9.4 MG/DL (8.5-10.1); CHLORIDE 103 MMOL/L (99-107); CREATININE 1.16 MG/DL (0.40-0.90); GLUCOSE 93 MG/DL (70-104); MAGNESIUM 2.1 MG/DL (1.5-2.4); POTASSIUM 4.1 MMOL/L (3.5-5.1); SODIUM 139 MMOL/L (135-145); TOTAL CARBON DIOXIDE 30.5 MMOL/L (24-32); eGFR 45 ML/MIN
== END 2022-07-16 11:00 | disposition home or self-care (01) ==
LOC: SSTAY O 07:57
PROVIDERS: ATTEND Internal Medicine Cardiovascular Disease
DX: I48.91 Unspecified atrial fibrillation (principal); I48.19 Other persistent atrial fibrillation; I49.5 Sick sinus syndrome; E78.5 Hyperlipidemia, unspecified; I10 Essential (primary) hypertension; M06.9 Rheumatoid arthritis, unspecified; K21.9 Gastro-esophageal reflux disease without esophagitis; Z79.899 Other long term (current) drug therapy; Z98.890 Other specified postprocedural states; Z98.49 Cataract extraction status, unspecified eye
CPT/HCPCS: 36415; 80048; 83735; 85025; 85610; 92960; 93005; J2250; J3010; J7030; A4620

== ENCOUNTER 2022-08-13 07:24 | Day surgery (SDC) | payer MEDICARE, OTHER ==
[~2022-08-13] VITALS: Ht 185.4 cm; Wt 88.5 kg
[2022-08-13] VITALS (14 sets, daily range): BP systolic 107–141; BP diastolic 47–100
[~2022-08-13 07:24] MED LIST changes: +AMIO200T61 PO; +FERR325T28 PO; +FURO40TA4 PO; -OXYC5TAB2 PO; +POTA-207 PO; -SOTA80TA PO; +warfarin 4mg tablet PO SCH; +warfarin 5mg tablet PO SCH
[2022-08-13] MEDS ORDERED: MIDAZolam 1mg/ml 10ml vial IV ONE (08:00)
[2022-08-13] MEDS ORDERED: normal saline 1000ml 1,000 ML IV SCH (08:00)
[2022-08-13] MEDS ORDERED: fentaNYL/PF 50MCG/1 ML 2ML syringe IV ONE (08:05)
[2022-08-13 09:06] LABS: EOSINOPHILS # (AUTO) 0.1 X10'3 (0-0.9); EOSINOPHILS % (AUTO) 1.3 % (0-6); HEMATOCRIT 45.1 % (35.0-45.0); LYMPHOCYTES # (AUTO) 0.9 X10'3 (1.1-4.8); MEAN CORPUSCULAR HEMOGLOBIN 29.6 PG (27.0-31.0); MEAN CORPUSCULAR HGB CONC 33.2 g/dL (33.0-36.5); MEAN CORPUSCULAR VOLUME 89.1 FL (78-98); MEAN PLATELET VOLUME 7.6 FL (7.4-10.4); MONOCYTES # (AUTO) 0.6 X10'3 (0-0.9); MONOCYTES % (AUTO) 13.4 % (2-12); NEUTROPHILS # (AUTO) 2.9 X10'3 (1.8-7.7); NEUTROPHILS % (AUTO) 64.3 % (42-75); PLATELET COUNT 218 X10'3 (140-440); RED BLOOD COUNT 5.06 X10'6 (4.20-5.60); RED CELL DISTRIBUTION WIDTH 17.3 % (11.5-14.5); WHITE BLOOD COUNT 4.4 X10'3 (4.5-11.0)
[2022-08-13 09:42] LABS: ALBUMIN 4.1 G/DL (3.4-5.0); ANION GAP 11 (8-16); BLOOD UREA NITROGEN 21 MG/DL (7-18); BUN/CREATININE RATIO 18.3 (6.6-38.0); CALCIUM 9.5 MG/DL (8.5-10.1); CHLORIDE 98 MMOL/L (99-107); CREATININE 1.15 MG/DL (0.40-0.90); GLUCOSE 85 MG/DL (70-104); MAGNESIUM 2.1 MG/DL (1.5-2.4); POTASSIUM 3.7 MMOL/L (3.5-5.1); SODIUM 137 MMOL/L (135-145); TOTAL CARBON DIOXIDE 28.1 MMOL/L (24-32); eGFR 46 ML/MIN
== END 2022-08-13 11:30 | disposition home or self-care (01) ==
LOC: SSTAY O 07:24
PROVIDERS: ATTEND Internal Medicine Cardiovascular Disease
DX: I48.4 Atypical atrial flutter (principal); I49.5 Sick sinus syndrome; E78.5 Hyperlipidemia, unspecified; M06.9 Rheumatoid arthritis, unspecified; Z79.899 Other long term (current) drug therapy; Z98.890 Other specified postprocedural states; Z98.49 Cataract extraction status, unspecified eye
CPT/HCPCS: 36415; 80048; 83735; 85025; 85610; 92960; 93005; J2250; J3010; J7030; A4620

== ENCOUNTER 2022-09-10 08:05 | Day surgery (SDC) | payer MEDICARE, OTHER ==
[~2022-09-10] VITALS: Ht 185.4 cm; Wt 193.0 kg
[2022-09-10] VITALS (7 sets, daily range): BP systolic 124–145; BP diastolic 64–89
[~2022-09-10 08:05] MED LIST changes: -warfarin 4mg tablet PO SCH; -warfarin 5mg tablet PO SCH
[2022-09-10] MEDS ORDERED: normal saline 1000ml 1,000 ML IV SCH (08:25)
[2022-09-10] MEDS ORDERED: MIDAZolam 1mg/ml 10ml vial IV ONE (08:25)
[2022-09-10] MEDS ORDERED: fentaNYL/PF 50MCG/1 ML 2ML syringe IV ONE (08:25)
== END 2022-09-10 12:40 | disposition home or self-care (01) ==
LOC: SSTAY O 08:05
PROVIDERS: ATTEND Internal Medicine Cardiovascular Disease
DX: I48.4 Atypical atrial flutter (principal); E34.9 Endocrine disorder, unspecified; I49.5 Sick sinus syndrome; I10 Essential (primary) hypertension; E78.5 Hyperlipidemia, unspecified; M06.9 Rheumatoid arthritis, unspecified; Z88.0 Allergy status to penicillin; Z79.899 Other long term (current) drug therapy; Z98.890 Other specified postprocedural states
CPT/HCPCS: 36415; 83735; 85610; 92960; 93005; J2250; J3010; J7030; A4620

== ENCOUNTER 2023-04-18 06:29 | Day surgery (SDC) | payer MEDICARE, OTHER ==
[~2023-04-18] VITALS: Ht 180.3 cm; Wt 92.2 kg
[2023-04-18] VITALS (16 sets, daily range): BP systolic 94–169; BP diastolic 63–103; PULSE 82–113; RESP 14–18; TEMP 97.9; O2SAT 93–98
[~2023-04-18 06:29] MED LIST changes: +AMI200T PO; -AMIO200T61 PO; +HYDR200T73 PO; -HYDR200T84 PO
[2023-04-18] MEDS ORDERED: normal saline 1,000 ML IV SCH (06:50)
[2023-04-18] MEDS ORDERED: diphenhydrAMINE 25mg capsule PO PRN (06:50)
[2023-04-18] MEDS ORDERED: WARF1TAB83 PO (07:03)
[2023-04-18 07:42] LABS: BASOPHILS % (AUTO) 1.1 % (0-1); EOSINOPHILS # (AUTO) 0.1 X10'3 (0-0.9); EOSINOPHILS % (AUTO) 1.9 % (0-6); HEMATOCRIT 43.7 % (35.0-45.0); HEMOGLOBIN 14.8 g/dl (12.0-16.0); LYMPHOCYTES # (AUTO) 1.4 X10'3 (1.1-4.8); LYMPHOCYTES % (AUTO) 31.9 % (21-51); MEAN CORPUSCULAR HGB CONC 33.9 g/dL (33.0-36.5); MEAN CORPUSCULAR VOLUME 91.4 FL (78-98); MEAN PLATELET VOLUME 7.4 FL (7.4-10.4); MONOCYTES # (AUTO) 0.7 X10'3 (0-0.9); MONOCYTES % (AUTO) 15.5 % (2-12); NEUTROPHILS # (AUTO) 2.1 X10'3 (1.8-7.7); NEUTROPHILS % (AUTO) 49.6 % (42-75); PLATELET COUNT 211 X10'3 (140-440); RED BLOOD COUNT 4.78 X10'6 (4.20-5.60); RED CELL DISTRIBUTION WIDTH 17.6 % (11.5-14.5); WHITE BLOOD COUNT 4.3 X10'3 (4.5-11.0)
[2023-04-18 07:43] LABS: ANION GAP 9 (8-16); BLOOD UREA NITROGEN 20 MG/DL (7-18); BUN/CREATININE RATIO 17.1 (10.0-20.0); CALCIUM 9.1 MG/DL (8.5-10.1); CHLORIDE 103 MMOL/L (99-107); CREATININE 1.17 MG/DL (0.40-0.90); GLUCOSE 86 MG/DL (70-104); MAGNESIUM 2.3 MG/DL (1.5-2.4); POTASSIUM 3.8 MMOL/L (3.5-5.1); SODIUM 140 MMOL/L (135-145); TOTAL CARBON DIOXIDE 28.5 MMOL/L (24-32); eCRCL 46 ML/MIN; eGFR 45 ML/MIN
[2023-04-18 07:46] LABS: INR 1.1 INR; PROTHROMBIN TIME 11.9 SECONDS (9.0-12.0)
[2023-04-18] MEDS ORDERED: LIDOcaine 1% (10mg/ml) 2ml vial ONE (08:38)
[2023-04-18] MEDS ORDERED: nitroGLYCERIN-Tridil 50MG/D5W 250 ML IV ONE (08:38)
[2023-04-18] MEDS ORDERED: verapamil 2.5 mg/ml inj IV ONE (08:38)
[2023-04-18] MEDS ORDERED: fentaNYL/PF 50MCG/1 ML 2ML syringe ONE (08:39)
[2023-04-18] MEDS ORDERED: heparin 1,000unit/ml 10ml vial 10 ML ONE (08:39)
[2023-04-18] MEDS ORDERED: iohexol 350MG/ML 100ml bottle IV ONE ×2 (08:39→10:13)
[2023-04-18] MEDS ORDERED: midazolam 1 mg/ML 2ml injection ONE ×2 (08:39→09:38)
[2023-04-18] MEDS ORDERED: iohexol 350 MG/ML 50ML vial IV ONE (09:01)
[2023-04-18] MEDS ORDERED: proCHLORperazine 10 MG/2 ml inj ONE (09:39)
[2023-04-18] MEDS ORDERED: ticagrelor 90mg tablet ONE (10:39)
[2023-04-18] MEDS ORDERED: aspirin 81mg tab.chew ONE (10:43)
[2023-04-18] MEDS ORDERED: HYDROcodone/acetaminophen 5mg/325mg tablet PO PRN (11:25)
[2023-04-18] MEDS ORDERED: ondansetron/PF 4mg/2ml inj IV PRN (11:25)
[2023-04-18] MEDS ORDERED: HYDROcodone/acetaminophen 10/325mg tab PO PRN (11:25)
[2023-04-18] MEDS ORDERED: proCHLORperazine 10 MG/2 ml inj IV PRN (11:25)
== END 2023-04-18 14:15 | disposition home or self-care (01) ==
LOC: SSTAY O 06:29
PROVIDERS: ATTEND Internal Medicine Cardiovascular Disease
DX: R94.30 Abnormal result of cardiovascular function study, unspecified (principal); I25.10 Atherosclerotic heart disease of native coronary artery without angina pectoris; I10 Essential (primary) hypertension; E78.5 Hyperlipidemia, unspecified; M06.9 Rheumatoid arthritis, unspecified; I48.0 Paroxysmal atrial fibrillation; I48.4 Atypical atrial flutter; I34.0 Nonrheumatic mitral (valve) insufficiency; I49.5 Sick sinus syndrome; Z98.890 Other specified postprocedural states; Z79.899 Other long term (current) drug therapy
CPT/HCPCS: 80048; 83735; 85025; 85610; 93005; 93458; 93571; 99152; 99153; C1874; C9600; J0780; J1644; J2250; J3010; J3490; J7030; Q0163; Q9967; 0523T; A6258; A6449; C1725; C1751; C1769; C1894

== ENCOUNTER 2023-07-01 08:32 | Day surgery (SDC) | payer MEDICARE, OTHER ==
[2023-07-01] VITALS (7 sets, daily range): BP systolic 98–134; BP diastolic 48–81; PULSE 65–75; RESP 12–15; TEMP 98.2; O2SAT 93–100
[~2023-07-01] VITALS: Ht 180.3 cm; Wt 87.0 kg
[~2023-07-01 08:32] MED LIST changes: -AMI200T PO; +CLOP75TA34 PO; +DILT120C19 PO; -VALS320T17 PO
[2023-07-01 09:35] LABS: BASOPHILS # (AUTO) 0.1 X10'3 (0-0.2); EOSINOPHILS # (AUTO) 0.2 X10'3 (0-0.9); EOSINOPHILS % (AUTO) 3.6 % (0-6); HEMATOCRIT 38.2 % (35.0-45.0); HEMOGLOBIN 12.5 g/dl (12.0-16.0); LYMPHOCYTES # (AUTO) 1.2 X10'3 (1.1-4.8); MEAN CORPUSCULAR HEMOGLOBIN 29.6 PG (27.0-31.0); MEAN CORPUSCULAR HGB CONC 32.6 g/dL (33.0-36.5); MEAN CORPUSCULAR VOLUME 90.7 FL (78-98); MEAN PLATELET VOLUME 7.3 FL (7.4-10.4); MONOCYTES # (AUTO) 0.8 X10'3 (0-0.9); NEUTROPHILS # (AUTO) 4.5 X10'3 (1.8-7.7); NEUTROPHILS % (AUTO) 66.4 % (42-75); PLATELET COUNT 353 X10'3 (140-440); RED BLOOD COUNT 4.21 X10'6 (4.20-5.60); RED CELL DISTRIBUTION WIDTH 16.4 % (11.5-14.5); WHITE BLOOD COUNT 6.8 X10'3 (4.5-11.0)
[2023-07-01] MEDS ORDERED: MIDAZolam 1mg/ml 10ml vial IV ONE (09:40)
[2023-07-01] MEDS ORDERED: normal saline 1000ml 1,000 ML IV SCH (09:40)
[2023-07-01] MEDS ORDERED: fentaNYL/PF 50MCG/1 ML 2ML syringe IV ONE (09:40)
[2023-07-01 09:48] LABS: INR 3.9 INR; PROTHROMBIN TIME 38.3 SECONDS (9.0-12.0)
[2023-07-01] MEDS ORDERED: METO-395 PO ×2 (09:50→09:52)
[2023-07-01 09:56] LABS: ALBUMIN 3.4 G/DL (3.4-5.0); ANION GAP 8 (8-16); BLOOD UREA NITROGEN 16 MG/DL (7-18); CALCIUM 9.1 MG/DL (8.5-10.1); CHLORIDE 102 MMOL/L (99-107); GLUCOSE 102 MG/DL (70-104); MAGNESIUM 2.1 MG/DL (1.5-2.4); POTASSIUM 3.3 MMOL/L (3.5-5.1); SODIUM 137 MMOL/L (135-145); TOTAL CARBON DIOXIDE 27.2 MMOL/L (24-32); eCRCL 53 ML/MIN; eGFR 54 ML/MIN
--- NOTE | 2023-07-01 10:17 | NUR ---
Notified Dr. Campbell K is 3.3. New order for 20 mEq IV and 40 mEq PO x 1
[2023-07-01] MEDS ORDERED: potassium Cl 20 mEq SR tablet PO STA (10:18)
[2023-07-01] MEDS ORDERED: potassium Cl 20mEq/100mL bag 100 ML IV SCH (10:20)
[2023-07-01] MEDS ORDERED: potassium Cl 40MEQ/1/2NS 520ml 520 ML IV ONE (10:55)
[2023-07-01] MEDS ORDERED: midazolam 1 mg/ML 2ml injection ONE (12:12)
[2023-07-01] MEDS ORDERED: fentaNYL/PF 50MCG/1 ML 2ML syringe ONE (12:12)
== END 2023-07-01 14:30 | disposition home or self-care (01) ==
LOC: SSTAY O 08:32
PROVIDERS: ATTEND Internal Medicine Cardiovascular Disease
DX: I48.4 Atypical atrial flutter (principal); I48.0 Paroxysmal atrial fibrillation; I25.118 Atherosclerotic heart disease of native coronary artery with other forms of angina pectoris; I49.5 Sick sinus syndrome; I34.0 Nonrheumatic mitral (valve) insufficiency; I10 Essential (primary) hypertension; E78.5 Hyperlipidemia, unspecified; M06.9 Rheumatoid arthritis, unspecified; Z95.5 Presence of coronary angioplasty implant and graft; Z79.01 Long term (current) use of anticoagulants; Z79.899 Other long term (current) drug therapy; Z98.49 Cataract extraction status, unspecified eye; Z98.890 Other specified postprocedural states; Z88.0 Allergy status to penicillin
CPT/HCPCS: 80048; 83735; 85025; 85610; 92960; 93005; J2250; J3010; J3480; J7030; A4615

== ENCOUNTER 2025-02-10 02:40 | Inpatient (IN) | payer MEDICARE, OTHER ==
[~2025-02-10] VITALS: Ht 180.3 cm; Wt 86.2 kg
[~2025-02-10 02:40] MED LIST changes: -DILT120C19 PO; +METO-395 PO
--- NOTE | 2025-02-10 02:55 | Physician Documentation ---
History of Present Illness ~ Chief Complaint: Ankle pain Stated Complaint: L LEG PAIN Time Seen by MD: 02:47 Source: patient, EMS, EMS notes reviewed Mode of Arrival: EMS Exam Limitations: no limitations HPI Chief Complaint: Left lower leg pain Caveat: None Independent Historians: Paramedics History of Present Illness: Patient is a 79-year-old woman brought in by paramedics from home with severe left leg pain. Pain started last night. Patient and noticed that her distal lateral left leg appeared more swollen than usual and was red and hot to touch. Patient denies any fevers. Pain is worse with touch. Patient took a dose of amoxicillin last night. Patient has multiple orthopedic surgeries to the left ankle and had a large skin flap over the left lateral distal leg. The skin flap was placed because of prior infection. Patient denies chest pain. No shortness a breath. No known fever. No nausea vomiting diarrhea. Review of systems: All systems were reviewed and are negative except for what is indicated in the history of present illness. Past Medical History: Atrial fibrillation, hyperlipidemia, rheumatoid arthritis Past Surgical History: Multiple orthopedic surgeries left ankle Social History: , no tobacco use, no alcohol use, no drug use Medications: Reviewed as documented Nursing Notes Allergies: Reviewed as documented in Nursing Notes Tetanus witin 5 years: Yes Medication Reconciliation Allergies: Coded Allergies: Penicillins (Verified Allergy, Unknown, 08/13/22) Scheduled Calcium Carbonate/Vitamin D3 (Calcium 500 + D Tablet), 1 TAB PO Q12H, (Reported) Clopidogrel Bisulfate (Clopidogrel), 75 MG PO DAILY Diltiazem Hcl SR* (Cardizem SR*), 2 CAP PO DAILY, (Reported) Furosemide (Furosemide), 1 TAB PO DAILY, (Reported) Gabapentin (Neurontin), 1 CAP PO TID, (Reported) Hydroxychloroquine Sulfate* (Plaquenil*), 1 TAB PO DAILY, (Reported) Pantoprazole Sodium (Pantoprazole Sodium), 1 TAB PO DAILY, (Reported) Potassium Chloride* (K-Dur*), 1 TAB PO DAILY, (Reported) Pravastatin Sodium (Pravastatin Sodium), 1 TAB PO DAILY, (Reported) Trazodone HCl (Trazodone HCl), 1 TAB PO HS, (Reported) Discontinued Medications Ferrous Sulfate* (Ferrous Sulfate*), 1 TAB PO DAILY, (Reported) Discontinued Reason: patient no longer taking Metoprolol Succinate (Metoprolol Succinate), 2 TAB PO DAILY, (Reported) Discontinued Reason: patient no longer taking Warfarin Sodium (Warfarin Sodium), 1 TAB PO MON,WED,FRI, (Reported) Discontinued Reason: patient no longer taking Warfarin Sodium (Warfarin Sodium), 1 TAB PO SUN,TUE,AWILDA,SAT, (Reported) Discontinued Reason: patient no longer taking Past Medical History Past Medical History: Atrial Fibrillation, Coronary Artery Disease, Hypertension, *GI/HEPATOBILIARY*, Extremity Fracture, Rheumatoid Arthritis, MRSA Abscess Past Surgical History: orthopedic surgeries Alcohol Use: None Drug Use: none Lives with: Spouse Lives In: Home Occupation: retired Review of Systems All Other Systems at this time: Reviewed and Negative ROS Patient denies any other acute symptoms other than above. All other systems are negative Physical Exam Vital Signs: RN Vital Signs have been reviewed: Yes, Temperature: 99.0, Source: Oral, Heart Rate: 100, Respiratory Rate: 20, BP: 124/79, Pulse Oximetry: 98, Weight: 86.200 Oxygen Flow Rate: 0 Pulse Oximetry Reflects: adequate oxygenation Physical Exam General Appearance: Moderate distress HEENT: Normal OP, moist oral mucosa, PERRL, EOMI Neck: supple, normal ROM, trachea midline Pulmonary: No respiratory distress, CTA, BS equal Cardiac: RRR, no murmur, rub or gallop, GI: nondistended, soft, nontender, normal bowel sounds, no guarding, no rebound Extremities: Multiple scars to left leg and ankle. Normal capillary refill in the left foot. Large amount of scar tissue over the left lateral leg. Leg is hot to touch and erythematous and very tender. Right lower extremity unremarkable. Skin: intact, dry, warm, no rashes, see extremity exam above Neuro: AAOx3, speech is clear, no focal motor weakness Psych: normal affect, good eye contact, no apparent hallucination, normal speech Progress Results/Orders Results/Orders Orders - SRI SALAZAR MD MG (02/10/25 02:47) Urinalysis, Cult If Indicated (02/10/25 02:47) Culture Blood (02/10/25 02:47) Chest,Single View (02/10/25 02:47) Page Hospitalist (02/10/25 04:13) Fill Out Med Reconciliation (02/10/25 04:13) CMP (02/10/25 03:18) Completed Orders - SRI SALAZAR MD Electrocardiogram (02/10/25 02:47) Cbc/Diff (02/10/25 02:47) Chest,Single View (02/10/25 02:47) Procalcitonin (02/10/25 02:47) Lacticsepsis (02/10/25 02:47) Cefazolin/D5w- 1gm Premix (Ancef 1 Gm-D5 (02/10/25 02:50) Cefazolin/D5w- 1gm Premix (Ancef 1 Gm-D5 (02/10/25 03:32) Medications Received in ER Medications (Trade) Dose Ordered Sig/Haim Route PRN Reason Start Time Stop Time Status Last Admin Dose Admin Cefazolin Sodium/ Dextrose 50 ml @ 100 mls/hr ONCE ONCE IV 02/10/25 02:50 02/10/25 03:19 DC 02/10/25 03:41 100 MLS/HR ([place] 10/325mg tab) 1 tab Q4H PRN PO SEVERE PAIN 7-10 02/10/25 04:20 02/10/25 04:39 1 TAB Sodium Chloride 1,000 ml @ 100 mls/hr Q10H IV 02/10/25 04:20 02/10/25 04:39 100 MLS/HR Vital Signs 02/10/25 02/10/25 02/10/25 02:44 03:33 03:38 Temp 99.0 Pulse 100 93 Resp 20 16 B/P (MAP) 124/79 116/52 (73) Pulse Ox 98 95 O2 Flow Rate 0 0 Laboratory Tests Test 02/10/25 03:18 White Blood Count 13.4 H Red Blood Count 4.80 Hemoglobin 14.7 Hematocrit 43.1 Mean Corpuscular Volume 89.7 Mean Corpuscular Hemoglobin 30.7 Mean Corpuscular Hemoglobin Concent 34.2 Red Cell Distribution Width 17.0 H Platelet Count 188 Mean Platelet Volume 7.7 Neutrophils (%) (Auto) 88.7 H Lymphocytes (%) (Auto) 5.9 L Monocytes (%) (Auto) 5.1 Eosinophils (%) (Auto) 0.2 Basophils (%) (Auto) 0.1 Neutrophils # (Auto) 11.9 H Lymphocytes # (Auto) 0.8 L Monocytes # (Auto) 0.7 Eosinophils # (Auto) 0.0 Basophils # (Auto) 0.0 CBC Comment Sodium Level 144 Chloride Level 105 Carbon Dioxide Level 25.2 Anion Gap 14 Blood Urea Nitrogen 26 H Creatinine 1.27 H Estimated GFR/1.73 m2 41 BUN/Creatinine Ratio 20.5 H Glucose Level 92 Lactic Acid Level 2.2 H Calcium Level 9.2 Magnesium Level 1.8 Total Bilirubin 1.0 Aspartate Amino Transf (AST/SGOT) 22 Alanine Aminotransferase (ALT/SGPT) 24 Alkaline Phosphatase 62 Total Protein 7.4 Albumin 3.9 Globulin 3.5 Albumin/Globulin Ratio 1.1 Procalcitonin 0.49 Chemistry Comments Microbiology Date/Time Source Procedure Growth Status 02/10/25 03:18 Blood Arm Right Blood Culture - Preliminary NEGATIVE (LESS THAN 24 HOURS) Resulted Medical Decision Making Additional info obtained from: old records Findings Differential diagnosis includes but is not limited to: Cellulitis, abscess, sepsis EKG independent interpretation: 11:01 p.m.. Sinus rhythm, heart rate 94, PACs, nonspecific ST changes Chest x-ray, single view, indication: Atrial fibrillation Independent interpretation: Lungs are clear, cardiomegaly, normal mediastinum, no acute cardiopulmonary process Laboratory data independent interpretation: CBC: Leukocytosis of 13.4 CMP: Unremarkable except for a creatinine of 1.27 and BUN is also elevated. Lactic acid is 2.2. Urinalysis: Emergency department course/medical decision-making: Patient presents with a history and physical consistent with cellulitis of the left leg. Patient is given Ancef 1 g IV. Patient will be given morphine and Zofran for pain. Recommend admission for IV antibiotics. Consultation/communications: Case discussed with the hospitalist Dr. Xie. He will evaluate the patient for admission. Departure Time of Disposition: 04:13 Disposition: 09 ADMITTED INPATIENT Admitted to Inpatient Unit: to hospitalist Admission Level of Care: Med/Surg Impression: Primary Impression: Cellulitis of left leg Condition: Fair Education Educated: Patient Educated regarding: diagnosis, treatment Signature Scribe Signature: No scribe Attestation: No scribe SRI SALAZAR MD Feb 10, 2025 02:55
--- NOTE | 2025-02-10 03:03 | ELECTROCARDIOGRAPH REPORT ---
[facility] Test Date: 2025-02-10 Test Time: 03:01:47 Pat Name: MELVA TRINIDAD Department: [facility] Patient ID: [facility]-[id number] Room: [place] [address] Gender: F Land Measurer: : 1945 Requested By: SRI SALAZAR Order Number: [id number] Reading MD: Dr. Ernie Limon Measurements Intervals [place] Rate: 94 P: 0 DC: 251 QRS: -33 QRSD: 92 T: 117 QT: 320 QTc: 401 Interpretive Statements Sinus tachycardia Atrial premature complexes Prolonged DC interval RSR' in V1 or V2, right VCD or RVH LVH with secondary repolarization abnormality Electronically Signed On 02-18-2025 17:58:[address] Ernie Limon Please click the below link to view image of tracing.
--- NOTE | 2025-02-10 03:21 | RADIOLOGY REPORT ---
CHEST RADIOGRAPH Indication: SEPSIS Technique: Single frontal view of the chest was obtained COMPARISON: DI CHEST,SINGLE VIEW on DOS: 05/17/23, CHEST,SINGLE VIEW on DOS: 07/20/21 FINDINGS: Lines and Tubes: None Lungs: Clear Pleura: No effusion. No pneumothorax. Cardiomediastinal contours: Unremarkable. Atherosclerotic vascular calcifications. Bones: Unremarkable IMPRESSION: 1. No acute disease.
[2025-02-10 03:41] LABS: BASOPHILS % (AUTO) 0.1 % (0-1); EOSINOPHILS % (AUTO) 0.2 % (0-6); HEMATOCRIT 43.1 % (35.0-45.0); HEMOGLOBIN 14.7 g/dl (12.0-16.0); LYMPHOCYTES # (AUTO) 0.8 X10'3 (1.1-4.8); LYMPHOCYTES % (AUTO) 5.9 % (21-51); MEAN CORPUSCULAR HEMOGLOBIN 30.7 PG (27.0-31.0); MEAN CORPUSCULAR HGB CONC 34.2 g/dL (33.0-36.5); MEAN CORPUSCULAR VOLUME 89.7 FL (78-98); MEAN PLATELET VOLUME 7.7 FL (7.4-10.4); MONOCYTES # (AUTO) 0.7 X10'3 (0-0.9); MONOCYTES % (AUTO) 5.1 % (2-12); NEUTROPHILS # (AUTO) 11.9 X10'3 (1.8-7.7); NEUTROPHILS % (AUTO) 88.7 % (42-75); PLATELET COUNT 188 X10'3 (140-440); WHITE BLOOD COUNT 13.4 X10'3 (4.5-11.0)
[2025-02-10] MEDS: ceFAZolin/D5W- 1GM premix 50 ML IV ONE ×2 (03:41)
[2025-02-10 03:42] LABS: MAGNESIUM 1.8 MG/DL (1.5-2.4)
[2025-02-10] MEDS ORDERED: CARSR60C PO (04:06)
[2025-02-10] MEDS ORDERED: magnesium hydroxide 30ml (MOM) UD suspension PO PRN (04:20)
[2025-02-10] MEDS ORDERED: potassium Cl 40MEQ/1/2NS 520ml 520 ML IV PRN (04:20)
[2025-02-10] MEDS ORDERED: potassium Cl 20 mEq SR tablet PO PRN (04:20)
[2025-02-10] MEDS ORDERED: magnesium sulf-water 4G/100mL 100 ML IV PRN (04:20)
[2025-02-10] MEDS ORDERED: acetaminophen 325mg tablet PO PRN (04:20)
[2025-02-10] MEDS ORDERED: magnesium Cl slow-release 64mg tablet PO PRN (04:20)
[2025-02-10] MEDS ORDERED: magnesium sulf-water 2g/50mL 50 ML IV PRN (04:20)
[2025-02-10] MEDS ORDERED: ondansetron/PF 4mg/2ml inj IV PRN (04:20)
[2025-02-10] MEDS ORDERED: mag hydrox/Alum hydrox/simeth 30ml oral suspension PO PRN (04:20)
[2025-02-10] MEDS ORDERED: morphine 2 MG/ML inj. syringe IV PRN ×2 (04:20)
[2025-02-10] MEDS: HYDROcodone/acetaminophen 10/325mg tab PO PRN (04:39)
[2025-02-10] MEDS: normal saline 1000ml 1,000 ML IV SCH (04:39)
[2025-02-10] MEDS: HYDROmorphone 1 mg/ml syringe IV ONE (05:40)
[2025-02-10] MEDS: normal saline 1000ml 1,000 ML IV ONE ×2 (05:43→07:18)
[2025-02-10 05:46] LABS: ALANINE AMINOTRANSFERASE 24 U/L (12-78); ALBUMIN 3.9 G/DL (3.4-5.0); ALBUMIN/GLOBULIN RATIO 1.1 (1.1-1.5); ALKALINE PHOSPHATASE 62 IU/L (46-116); ANION GAP 14 (8-16); ASPARTATE AMINO TRANSFERASE 22 U/L (10-37); BLOOD UREA NITROGEN 26 MG/DL (7-18); BUN/CREATININE RATIO 20.5 (10.0-20.0); CALCIUM 9.2 MG/DL (8.5-10.1); CHLORIDE 105 MMOL/L (99-107); CREATININE 1.27 MG/DL (0.40-0.90); GLUCOSE 92 MG/DL (70-104); SODIUM 144 MMOL/L (135-145); TOTAL CARBON DIOXIDE 25.2 MMOL/L (24-32); TOTAL PROTEIN 7.4 G/DL (6.4-8.2); eCRCL 41 ML/MIN; eGFR 41 ML/MIN
[2025-02-10 06:10] LABS: POTASSIUM 2.9 MMOL/L (3.5-5.1)
--- NOTE | 2025-02-10 06:11 | RADIOLOGY REPORT ---
EXAM: DI ANKLE,LIMITED (AP/LAT) HISTORY: PAIN WITH SWELLING LT ANKLE COMPARISON: None TECHNIQUE: Three views of the left ankle were performed. FINDINGS/IMPRESSION: 1. No acute fracture of the left ankle. 2. Postoperative changes ankle fusion intramedullary charlene and calcaneal screw. There also postoperativ e changes of distal fibular resection. 3. Old healed fractures of the left tibial and fibular diaphyses. 4. Plantar calcaneal bone spur, os peroneum, and talonavicular degenerative changes incidentally note d.
--- NOTE | 2025-02-10 06:12 | HISTORY AND PHYSICAL-Residence ---
History & Physical Providers to CC Resident Creating Document: CELIO MARQUEZ RES ~ History of Present Illness Reason for Admit\Complaint: Left lower extremity cellulitis History of Present Illness A 79-year-old woman presented to the ER with severe left leg pain by paramedics. Left lower extremity pain started on last night, very severe, rated 10/10, aggravated with movements on tired. Patient and noticed that her distal lateral left leg appeared more swollen than usual and was red and hot to touch. Patient denies any fevers. Patient took a dose of amoxicillin last night. Patient has multiple orthopedic surgeries to the left ankle and had a large skin flap over the left lateral distal leg for prior infection . The skin flap was placed because of prior infection. Patient denies chest pain. No shortness a breath. No known fever. No nausea vomiting diarrhea. Discussed the code status with the patient the patient wants to be full code. Allergies: Coded Allergies: Penicillins (Verified Allergy, Unknown, 02/10/25) Home Medications Home Medications Active Clopidogrel (Clopidogrel Bisulfate) 75 Mg Tablet 75 Mg PO DAILY Do not stop medication unless instructed by prescriber. Reported Cardizem SR* (Diltiazem HCl) 60 Mg Cap.sr.12h 2 Cap PO DAILY K-Dur* (Potassium Chloride) 20 Meq Tab.prt.sr 1 Tab PO DAILY Furosemide 40 Mg Tablet 1 Tab PO DAILY Plaquenil* (Hydroxychloroquine Sulfate) 200 Mg Tablet 1 Tab PO DAILY Neurontin (Gabapentin) 300 Mg Capsule 1 Cap PO TID Trazodone HCl 50 Mg Tablet 1 Tab PO HS Pantoprazole Sodium 40 Mg Tablet.dr 1 Tab PO DAILY Pravastatin Sodium 20 Mg Tablet 1 Tab PO DAILY Calcium 500 + D Tablet (Calcium/Vitamin D) 1 Each Tablet 1 Tab PO Q12H Past Medical History Past Medical History AFIB ATRIAL FLUTTER TYPE 2 CAD STATUS POST STENTING ESSENTIAL HYPERTENSION HYPERLIPIDEMIA NONRHEUMATIC MITRAL REGURGITATION RHEUMATOID ARTHRITIS SICK SINUS SYNDROME Past Surgical History Surgical History Comment Multiple orthopedic surgeries of the left ankle Past Social History Smoking: Non-Smoker Alcohol Use: None Drug Use: None Lives with: Spouse Lives In: Home Occupation: retired ROS All Other Systems: Reviewed and Negative ROS Reviewed in full and negative except for positive pertinent as an HPI Exam Vitals: Vital Signs Date Time Temp Pulse Resp B/P (MAP) Pulse Ox O2 Delivery O2 Flow Rate FiO2 02/10/25 05:44 87 18 121/52 (75) 99 02/10/25 05:27 0 02/10/25 02:44 99.0 General: General Appearance: Moderate distress HEENT: Normal OP, moist oral mucosa, PERRL, EOMI Neck: supple, normal ROM, trachea midline Pulmonary: No respiratory distress, CTA, BS equal Cardiac: RRR, no murmur, rub or gallop, GI: nondistended, soft, nontender, normal bowel sounds, no guarding, no rebound Extremities: Multiple scars to left leg and ankle. Normal capillary refill in the left foot. Large amount of scar tissue over the left lateral leg. Leg is hot to touch and erythematous and very tender. Right lower extremity unremarkable. Skin: intact, dry, warm, no rashes, see extremity exam above Neuro: AAOx3, speech is clear, no focal motor weakness Psych: normal affect, good eye contact, no apparent hallucination, normal speech Diagnostic Data Last Recorded Lab Results: 02/10/25 0318 02/10/25 0318 Advance Care Planning Advanced Care planning: Add on additional 30 min Additional Plan Left lower extremity cellulitis Light Blood pressures are on soft side White blood counts are elevated Lactic acid is elevated 2.2 and procalcitonin is 0.49 the serum creatinine is 1.27. X-ray left foot showed FINDINGS/IMPRESSION: 1. No acute fracture of the left ankle. 2. Postoperative changes ankle fusion intramedullary charlene and calcaneal screw. There also postoperative changes of distal fibular resection. 3. Old healed fractures of the left tibial and fibular diaphyses. 4. Plantar calcaneal bone spur, os peroneum, and talonavicular degenerative changes incidentally noted. Ordered venous scan and arterial Doppler on follow up with the results Received 1 L of normal saline bolus and currently on 100 mL/hour normal saline Received Ancef in the ER and started on vancomycin and ceftriaxone. LUIS likely secondary to renal tubular stasis Serum creatinine is 1.27. Received 1 L of IV normal saline and currently on 100 mL/hour normal saline Continue to monitor CMP AFib CAD status post stenting Heart rate is controlled We are continuing diltiazem 60 mg b.i.d. on statin, Lasix 40 mg, diltiazem 60 p.o. b.i.d. clopidogrel 75 Rheumatoid arthritis will continue his chloroquine 200 mg p.o. daily dose We are continuing the home medications of statins and trazodone Disposition: Follow up with arterial and venous Doppler of the left lower leg Code status: Full code DVT prophylaxis: SubQ heparin PT: Ordered Progress: Guarded Celio Marquez IM resident Attending Physician Attestation Evaluation via HIPAA compliant AV device. I discussed the case with the resident and I agree with the resident's documentation. 79-year-old man with a history of coronary artery disease s/p PCI with DENISSE, mitral regurgitation, atrial fibrillation/atrial flutter, essential hypertension, dyslipidemia, and rheumatoid arthritis now admitted with severe left lower extremity pain, edema, warmth and rubor. The treament plan includes: Treatment of left lower extremity cellulitis with vancomycin and ceftriaxone antimicrobial therapy. Urgent evaluation for left lower extremity ischemia with arterial Doppler studies and Vascular Surgery evaluation. Continue medications for CAD, atrial fibrillation and rheumatoid arthritis as prescribed as an outpatient. The patient is not on oral anticoagulation as an outpatient. This should be reevaluated prior to discharge. Time spent 45 minutes. Date of Service: Feb 10, 2025 Billing Provider: ABNER PEREZ MD, VENKATESH, MING Feb 10, 2025 06:12 ABNER PEREZ MD Feb 10, 2025 08:23
[2025-02-10] MEDS: potassium Cl 20 mEq SR tablet PO PRN (06:21)
[2025-02-10] MEDS ORDERED: HYDROmorphone inj. 0.5 MG/0.5 ML DISP.SYRIN IV PRN (06:30)
[2025-02-10] MEDS ORDERED: HYDROmorphone/PF 0.2 MG/ML SYRINGE IV PRN (06:30)
[2025-02-10] MEDS: vancomycin/NS 1 GM ADD-VANTAGE 250 ML IV SCH (07:00)
[2025-02-10 07:12] LABS: PRO BRAIN NATRIURETIC PEPTIDE 991 PG/ML (0-450)
[2025-02-10] MEDS: furosemide 40mg tablet PO SCH (08:00)
[2025-02-10] MEDS: diltiazem SR 60mg capsule (twice daily) PO SCH (08:00)
[2025-02-10] MEDS ORDERED: non-formulary drug (Pravastatin Sodium 1 TAB) PO SCH (08:00)
[2025-02-10] MEDS: K and/or MAG REPLACEMENT MC SCH (08:00)
[2025-02-10 08:04] VITALS: BP 100/45; PULSE 95; RESP 26; TEMP 97.9; O2SAT 99
[2025-02-10] MEDS: gabapentin 300mg capsule PO SCH (08:41)
[2025-02-10] MEDS: docusate sod 100mg capsule PO SCH (08:41)
[2025-02-10] MEDS: CefTRIAXone 2gm/D5W 50ml BAG 50 ML IV SCH (08:41)
[2025-02-10] MEDS: hydroxychloroquine 200mg tablet PO SCH (08:42)
[2025-02-10] MEDS: atorvastatin 10mg tablet PO SCH (08:42)
[2025-02-10] MEDS: heparin, porcine 5000 units/ml vial SQ SCH (08:43)
[2025-02-10] MEDS: pantoprazole 40mg Tablet.DR PO SCH (08:45)
--- NOTE | 2025-02-10 08:51 | VASCULAR REPORT ---
VASC VL VENOUS HISTORY: edema COMPARISON: None TECHNIQUE: Duplex doppler evaluation of the deep venous system of the lower extremity from the common femoral veins, superficial femoral vein, great saphenous vein, deep femoral vein, popliteal vein, an d calf veins, including color doppler and spectral/pulsed waveform analysis, was performed. FINDINGS: Right: - Common femoral vein: Compressible - Deep femoral vein: Compressible - Femoral vein: Compressible - Popliteal vein: Compressible - Posterior tibial vein: Waveforms present - Peroneal vein: Waveforms present - Other: Nothing Left: - Common femoral vein: Compressible - Deep femoral vein: Compressible - Femoral vein: Compressible - Popliteal vein: Compressible - Other: Nothing IMPRESSION: No right or left lower extremity deep venous thrombosis.
--- NOTE | 2025-02-10 09:02 | VASCULAR REPORT ---
Left Lower Extremity Arterial Duplex Clinical History: Pain Comparison: None Technique: Duplex Doppler evaluation including color Doppler and spectral/pulsed waveform analysis of the lower extremity arteries was performed. Findings: LEFT: Peak systolic velocities are as follows: CREDIT UNDERWRITER 143 cm/s Deep femoral 112 cm/s SFA proximal 141 cm/s SFA mid-portion 151 cm/s SFA distal 1 51 cm/s Popliteal 104 cm/s Posterior tibial 110 cm/s Anterior tibial 52 cm/s Peroneal not visualized cm/s Dorsalis pedis 52 cm/s The waveforms are monophasic with diastolic flow. IMPRESSION: 20-49% stenosis of the left superficial femoral artery based on peak systolic velocity criteria. Monophasic arterial waveforms are present suggestive of underlying peripheral arterial disease. REFERENCE VALUES, [facility]) vascular Imaging Lab Criteria: Peak systolic velocity rang es (in cm/sec) are as follows: <150 cm/s - <20 % stenosis 150-200 cm/s - 20-49% stenosis 200-300 cm/s - 50-75% stenosis >300 cm/s -> 75% stenosis
[2025-02-10 10:00] VITALS: BP 118/51; PULSE 100; RESP 22; TEMP 98; O2SAT 96
[2025-02-10] MEDS ORDERED: iohexol 300mg/ml 100ml inj. ONE (14:17)
--- NOTE | 2025-02-10 15:36 | RADIOLOGY REPORT ---
INDICATION: LEFT LE cellulitis COMPARISON: Plain films of 02/10/2025 TECHNIQUE: CT of the left leg was performed without contrast. Volume transverse images were obtained and reconstructed in multiple planes using bone and soft tissue algorithms. Contrast: 100 cc of Omnipaque. Radiation Dose Information: CT Dose: CTDI volume is 15 mGy. Dose-length product is 618 mGy*cm FINDINGS: Old fracture seen of the proximal to mid tibia and fibula. Postoperative change seen with ankle fusion. Distal fibular resection. Surgical clips seen in the soft tissues consistent with plain films. Atrophic changes seen of the mus culature of the left lower extremity. No soft tissue abscess. No acute fracture. Edematous changes seen of the soft tissues compatible with cellulitis. IMPRESSION: 1. No acute fracture. No abscess. Soft tissue swelling Cellulitis Postoperative changes. All CT scans at this medical facility are performed using dose modulation techniques as appropriate t o a performed exam including the following: Automated exposure control was utilized; adjustment of th e MA and/or KV according to patient size; and use of iterative reconstruction technique.
[2025-02-10 18:00] VITALS: BP 88/47; PULSE 106; RESP 20; TEMP 100.1; O2SAT 98
[2025-02-10] MEDS: acetaminophen 325mg tablet PO PRN (18:03)
--- NOTE | 2025-02-10 18:49 | CARDIOLOGY REPORT ---
APPROVED REPORT EXAM: Comprehensive 2D, Doppler, and color-flow Echocardiogram. Patient Location: 4[address] Blood Pressure: 118/51 mmHg Heart Rate: 105 bpm Rhythm: Sinus Tachycardia Indications Arrhythmia Hx of Atrial Fibrillation Hx of Stents/CAD Hypertension Atrial Flutter Flower Arranger: Gaurav Chen MD Previous echo: None 2D Dimensions RVDd 4.3 cm LA Diam4.5 cm RA Minor4.6 cmAortic Root(2D) 3.0 cm LVOT Diameter 1.92 (1.8-2.4cm) IVC 20.47 mm CO 5.5 L/min M-Mode Dimensions RVDd 3.73 (2.1-3.2cm) IVSd 0.99 (0.7-1.1cm) LVDd 4.62 (4.0-5.6cm) Aortic Root 2.53 (2.2-3.7cm) PWd 1.14 (0.7-1.1cm) Aortic Cusp Exc 2.22 (1.5-2.0cm) IVSs 1.28 cm MV EPSS 0.6 (<0.5cm) LVDs 3.33 (2.0-3.8cm) FS (%) 28 % PWs 1.50 cm ESV(Teich) 45.2 ml LVEF(%) 54 (>50%) Aortic Valve AoV Peak Ad. 162.3 cm/s AoV VTI 25.8 cm AO Peak GR. 10.5 mmHg AO Mean GR. 6 mmHg LVOT VTI 21.95 cm LVOT Peak Ad. 139.9 cm/s JERARDO(VTI)/BSA 2.45 cm2/m2 JERARDO (VTI) 2.45 cm2 Mitral Valve MV E Velocity 101.9 cm/s MV Peak Gr. 5 mmHg MV Mean Gr. 2 mmHg MV PHT 60 ms MVA (PHT) 3.67 cm2 MV BMnu828.6 cm/s MV VMean61.9 cm/sMVA VTI3.19 cm2 MV VTI19.8 cm TDI Medial E' P. V 8.12 cm/s E/Medial E' 12.5 Pulmonary Valve RVOT VTI 14.6 cm Tricuspid Valve TR P. Velocity 273 cm/s RAP ESTIMATE 15 mmHg TR Peak Gr. 30 mmHg RVSP 45 mmHg Pulmonary Vein S1 Velocity 64.3 cm/s D2 Velocity 55.3 cm/s PVa Qwgibswe77.0 cm/s PVa Cajhjsvp75 msec LEFT VENTRICLE Normal LV size and wall thickness. Basal and mid anteroseptal segments appear thinned and mildly hypo kinetic. Overall systolic function is mildly reduced. Overall LVEF is 50-55%. RIGHT VENTRICLE Right ventricle is moderate to severely dilated with reduced systolic function. Estimated PA systolic pressure is 45 mmHg. ATRIA Moderate biatrial enlargement. AORTIC VALVE Trileaflet AV appears sclerotic without stenosis. Trace insufficiency. MITRAL VALVE Mild MV annular calcification. Posterior Mitral leaflet is calcified and thickened with reduced excur ruba. No stenosis with mild regurgitation. TRICUSPID VALVE TV appears structurally normal with trace regurgitation. PULMONIC VALVE Normal PV without stenosis, physiologic insufficiency. GREAT VESSELS The aortic root is normal in size. IVC is dilated and collapses less than 50% with inspiration. PERICARDIUM Normal pericardium. No pericardial effusion seen. Other Information Study Quality: Adequate Conclusion Normal LV size and wall thickness. Basal and mid anteroseptal segments appear thinned and mildly hypo kinetic. Overall systolic function is mildly reduced. Overall LVEF is 50-55%. Right ventricle is moderate to severely dilated with reduced systolic function. Estimated PA systolic pressure is 45 mmHg. Moderate biatrial enlargement. Trileaflet AV appears sclerotic without stenosis. Trace insufficiency. Mild MV annular calcification. Posterior Mitral leaflet is calcified and thickened with reduced excu rsion. No stenosis with mild regurgitation. TV appears structurally normal with trace regurgitation. The aortic root is normal in size. Normal pericardium. No pericardial effusion seen.
[2025-02-10 19:47] VITALS: RESP 20; O2SAT 98
[2025-02-10] MEDS: traZODone 50mg tablet PO SCH (20:18)
[2025-02-10] MEDS: aspirin 81mg, enteric-coated 1 TAB TABLET.DR PO ONE (20:18)
[2025-02-10] MEDS: atorvastatin 20mg tablet PO SCH (20:18)
[2025-02-10 22:00] VITALS: BP 80/40; PULSE 100; RESP 14; TEMP 98.8; O2SAT 96
[2025-02-10] MEDS: normal saline 1000ml 1,000 ML IVB ONE (22:40)
[2025-02-10 23:20] VITALS: BP 84/52
[2025-02-11] VITALS (12 sets, daily range): BP systolic 98–119; BP diastolic 49–62; PULSE 78–90; RESP 15–20; TEMP 98–98.8; O2SAT 95–100
[2025-02-11] MEDS: normal saline 1000ml 1,000 ML IVB ONE (01:08)
[2025-02-11] MEDS: aspirin 81mg, enteric-coated 1 TAB TABLET.DR PO SCH (07:51)
[2025-02-11 08:18] LABS: BASOPHILS % (AUTO) 0.1 % (0-1); EOSINOPHILS % (AUTO) 0.1 % (0-6); HEMATOCRIT 33.4 % (35.0-45.0); HEMOGLOBIN 11.2 g/dl (12.0-16.0); LYMPHOCYTES # (AUTO) 0.5 X10'3 (1.1-4.8); LYMPHOCYTES % (AUTO) 2.8 % (21-51); MEAN CORPUSCULAR HEMOGLOBIN 30.8 PG (27.0-31.0); MEAN CORPUSCULAR HGB CONC 33.6 g/dL (33.0-36.5); MEAN CORPUSCULAR VOLUME 91.6 FL (78-98); PLATELET COUNT 123 X10'3 (140-440); RED BLOOD COUNT 3.64 X10'6 (4.20-5.60); RED CELL DISTRIBUTION WIDTH 17.7 % (11.5-14.5); WHITE BLOOD COUNT 16.5 X10'3 (4.5-11.0)
[2025-02-11 08:27] LABS: ALANINE AMINOTRANSFERASE 19 U/L (12-78); ALBUMIN 2.3 G/DL (3.4-5.0); ALBUMIN/GLOBULIN RATIO 0.8 (1.1-1.5); ALKALINE PHOSPHATASE 45 IU/L (46-116); ANION GAP 10 (8-16); ASPARTATE AMINO TRANSFERASE 30 U/L (10-37); BILIRUBIN,TOTAL 0.6 MG/DL (0.1-1.0); BLOOD UREA NITROGEN 36 MG/DL (7-18); BUN/CREATININE RATIO 26.1 (10.0-20.0); CALCIUM 7.4 MG/DL (8.5-10.1); CHLORIDE 110 MMOL/L (99-107); CHOL/HDL RATIO 1.4 (0.00-4.99); CHOLESTEROL 88 MG/DL (0-200); CREATININE 1.38 MG/DL (0.40-0.90); GLUCOSE 70 MG/DL (70-104); HDL CHOLESTEROL 62 MG/DL (35-60); LDL CHOLESTEROL 13 MG/DL (50-100); MAGNESIUM 1.7 MG/DL (1.5-2.4); POTASSIUM 5.7 MMOL/L (3.5-5.1); SODIUM 139 MMOL/L (135-145); TOTAL CARBON DIOXIDE 18.8 MMOL/L (24-32); TOTAL PROTEIN 5.3 G/DL (6.4-8.2); TRIGLYCERIDES 39 MG/DL (20-135); eCRCL 38 ML/MIN; eGFR 37 ML/MIN
[2025-02-11 09:20] LABS: TOTAL CELLS COUNTED 100
[2025-02-11] MEDS ORDERED: nitroGLYCERIN 0.4mg SUBLingual tab SL PRN ×2 (09:20→10:05)
[2025-02-11 09:21] LABS: ANISOCYTOSIS 1+; PLATELET ESTIMATE DECREASED
[2025-02-11] MEDS ORDERED: aminophylline 500mg/20ml vial IV PRN (10:05)
[2025-02-11] MEDS ORDERED: metoprolol tartrate 1mg/ml inj IV PRN (10:05)
[2025-02-11] MEDS: SODIUM ZIRCONIUM CYCLOSILICATE 10 GM POWD.PACK PO SCH (11:43)
[2025-02-11] MEDS: HEPARIN DRIP-CARDIAC**PHARMACIST-TO-DOSE IV ONE (13:55)
[2025-02-11] MEDS: regadenoson 0.4mg/5ml syringe IV PRN (13:59)
[2025-02-11] MEDS ORDERED: heparin 10,000 units/1 ML INJ IV PRN (15:30)
--- NOTE | 2025-02-11 15:59 | PROGRESS NOTE ---
Daily Progress Note Providers to CC ~ Milligan-Non Protocol Milligan Indications Met/Not Met: F/C Indications Not Met Antibiotic Timeout Antibiotic Ordered?: Yes Subjective No acute events overnight. Patient examined at bedside. No new complaints. Patient denies chest pain, sob, palpitations, abdominal pain, n/v/d. Vss, labs notable for normalized lactic acid after fluids. Mild hyperkalemia, Lokelma given. Preliminary blood cultures remained negative. Tele sinus in 80s. Arterial ultrasound shows mild stenosis of left lower extremity, venous ultrasound negative for DVT. CT shows cellulitis of left lower extremity without evidence of abscess. Lexiscan today reversible defect of the anterolateral wall, consulted Dr. Lawrence Slade. Objective Vital Signs Date Time Temp Pulse Resp B/P (MAP) Pulse Ox O2 Delivery O2 Flow Rate FiO2 02/11/25 14:09 89 20 111/54 99 Room Air 0.0 02/11/25 10:00 98.8 Result Diagram: 02/11/25 0746 02/11/25 0746 Physical Exam General: Generalized weakness, A&Ox 3, NAD HEENT: Normocephalic, PERRLA Neck: Supple, trachea midline, no JVD Chest: Clear to auscultation bilaterally Cardiovascular: RRR, S1&S2 GI: Soft and nontender Extremities: Edematous/erythematous LLE STORE RECEIVER: CN II-XII intact, no focal deficits Musculoskeletal: No paraspinal muscle tenderness, no muscle spasm Skin: Erythematous LLE, no open ulcers, no scabs Problem\Assessment\Plan # Cellulitis, LLE # Sepsis 2/2 cellulitis- POA # s/p left ankle fusion -on vancomycin, ceftriaxone, IVF -Arterial ultrasound shows mild stenosis of left lower extremity, venous ultrasound negative for DVT. CT shows cellulitis of left lower extremity without evidence of abscess. Follow bone scan. # Prerenal LUIS 2/2 sepsis/vasomotor nephropathy # Hyperkalemia 2/2 LUIS -02/11: mild hyperkalemia, Lokelma given, follow labs # NSTEMI- POA -trops uptrended, heparin drip started but discontinued per consulting carpet weaver recommendation, Leslie barroso reversible defect of the anterolateral wall. Consulted Dr. Lawrence Slade. # Atrial fibrillation, CVR (carpet weaver Dr. Allen) # CAD s/p stent (2022) -continue home diltiazem, anticoagulant, aspirin # Rheumatoid arthritis -supportive care Code Status: Full Code Date of Service: Feb 11, 2025 Billing Provider: ANI ELIZABETH Common Visit Codes: [id number] INP/OBS CARE(HIGH) NAI ELIZABETH Feb 11, 2025 15:59
[2025-02-11] MEDS: heparin 10,000 units/1 ML INJ IV ONE (16:07)
[2025-02-11] MEDS: heparin 25,000 UNIT/250ml bag 250 ML IV PRN (16:09)
[2025-02-11] MEDS: MESSAGE TO NURSING IV ONE (16:20)
--- NOTE | 2025-02-11 16:41 | RADIOLOGY REPORT ---
Procedure: NM NM ANDRES SCAN Exam Date: 02/11/2025 01:13 PM Reason for study/Clinical History: elevated trops Comparison Study: None Myocardial Perfusion Study with SPECT Technique: The patient received an intravenous injection of 8 mCi of technetium-99m sestamibi while at rest. After a short delay, SPECT tomographic images of the heart were obtained. The patient then went to the stress lab where they received an intravenous infusion of 0.4 mg lexiscan utilizing natalie dard protocol. 33 mCi of technetium-99m sestamibi was injected intravenously immediately after the start of the lexiscan infusion. Gated SPECT tomographic images of the heart were acquired and proces sed. Findings: Reversible defect of the anterolateral wall. End diastolic volume: 83 mL End systolic volume: 34 mL The left ventricular ejection fraction is 59 %. (normal greater than 50%) Impression: Reversible defect of the anterolateral wall. The left ventricular ejection fraction is 59 %.
[2025-02-11 17:11] LABS: BASOPHILS % (AUTO) 0.1 % (0-1); EOSINOPHILS % (AUTO) 0.1 % (0-6); HEMATOCRIT 34.1 % (35.0-45.0); HEMOGLOBIN 11.4 g/dl (12.0-16.0); LYMPHOCYTES # (AUTO) 0.5 X10'3 (1.1-4.8); LYMPHOCYTES % (AUTO) 2.9 % (21-51); MEAN CORPUSCULAR HEMOGLOBIN 30.5 PG (27.0-31.0); MEAN CORPUSCULAR HGB CONC 33.3 g/dL (33.0-36.5); MEAN CORPUSCULAR VOLUME 91.8 FL (78-98); MEAN PLATELET VOLUME 8.6 FL (7.4-10.4); MONOCYTES # (AUTO) 0.9 X10'3 (0-0.9); MONOCYTES % (AUTO) 5.3 % (2-12); NEUTROPHILS % (AUTO) 91.6 % (42-75); PLATELET COUNT 132 X10'3 (140-440); RED BLOOD COUNT 3.72 X10'6 (4.20-5.60); RED CELL DISTRIBUTION WIDTH 18.4 % (11.5-14.5); WHITE BLOOD COUNT 17.4 X10'3 (4.5-11.0)
[2025-02-11 17:17] LABS: APTT 35 SECONDS (22-32); INR 1.3 INR; PROTHROMBIN TIME 13.3 SECONDS (9.0-12.0)
--- NOTE | 2025-02-11 18:05 | ELECTROCARDIOGRAPH REPORT ---
[facility] Test Date: 2025-02-11 Test Time: 18:03:46 Pat Name: MELVA TRINIDAD Department: [facility] Patient ID: [facility]-[id number] Room: [place] [id number] A Gender: F Civil Technician: : 1945 Requested By: ANI ELIZABETH Order Number: [id number] Reading MD: Dr. DELONTE Rubio Measurements Intervals Waddy Rate: 78 P: -52 FL: 237 QRS: -31 QRSD: 77 T: -58 QT: 456 QTc: 520 Interpretive Statements Sinus or ectopic atrial rhythm Prolonged FL interval Abnormal R-wave progression, early transition Inferior infarct, old Lateral leads are also involved Prolonged QT interval Electronically Signed On 02-15-2025 19:11:[address] DELONTE Rubio Please click the below link to view image of tracing.
[2025-02-11 20:04] LABS: MAGNESIUM 1.8 MG/DL (1.5-2.4); POTASSIUM 4.6 MMOL/L (3.5-5.1)
[2025-02-11] MEDS: apixaban 5mg tablet PO SCH (20:37)
[2025-02-11] MEDS: diltiazem SR 60mg capsule (twice daily) PO SCH (20:42)
[2025-02-12 04:49] LABS: BASOPHILS % (AUTO) 0.2 % (0-1); EOSINOPHILS # (AUTO) 0.1 X10'3 (0-0.9); EOSINOPHILS % (AUTO) 0.4 % (0-6); HEMATOCRIT 29.2 % (35.0-45.0); HEMOGLOBIN 9.8 g/dl (12.0-16.0); LYMPHOCYTES # (AUTO) 0.4 X10'3 (1.1-4.8); LYMPHOCYTES % (AUTO) 3.2 % (21-51); MEAN CORPUSCULAR HEMOGLOBIN 30.3 PG (27.0-31.0); MEAN CORPUSCULAR HGB CONC 33.5 g/dL (33.0-36.5); MEAN CORPUSCULAR VOLUME 90.4 FL (78-98); MEAN PLATELET VOLUME 8.1 FL (7.4-10.4); MONOCYTES # (AUTO) 0.8 X10'3 (0-0.9); MONOCYTES % (AUTO) 5.7 % (2-12); NEUTROPHILS # (AUTO) 12.8 X10'3 (1.8-7.7); NEUTROPHILS % (AUTO) 90.5 % (42-75); PLATELET COUNT 97 X10'3 (140-440); RED BLOOD COUNT 3.23 X10'6 (4.20-5.60); RED CELL DISTRIBUTION WIDTH 17.4 % (11.5-14.5); WHITE BLOOD COUNT 14.1 X10'3 (4.5-11.0)
[2025-02-12 05:13] LABS: ALANINE AMINOTRANSFERASE 22 U/L (12-78); ALBUMIN 2.2 G/DL (3.4-5.0); ALBUMIN/GLOBULIN RATIO 0.7 (1.1-1.5); ALKALINE PHOSPHATASE 51 IU/L (46-116); ANION GAP 10 (8-16); ASPARTATE AMINO TRANSFERASE 31 U/L (10-37); BILIRUBIN,TOTAL 0.5 MG/DL (0.1-1.0); BLOOD UREA NITROGEN 27 MG/DL (7-18); BUN/CREATININE RATIO 28.7 (10.0-20.0); CALCIUM 7.6 MG/DL (8.5-10.1); CHLORIDE 109 MMOL/L (99-107); CREATININE 0.94 MG/DL (0.40-0.90); GLUCOSE 75 MG/DL (70-104); POTASSIUM 3.8 MMOL/L (3.5-5.1); SODIUM 139 MMOL/L (135-145); TOTAL CARBON DIOXIDE 19.9 MMOL/L (24-32); TOTAL PROTEIN 5.2 G/DL (6.4-8.2); eCRCL 55 ML/MIN; eGFR 58 ML/MIN
[2025-02-12 06:00] VITALS: BP 127/65; PULSE 74; RESP 15; TEMP 97.9; O2SAT 97
[2025-02-12 07:31] VITALS: BP 132/64; PULSE 69
[2025-02-12] MEDS ORDERED: clopidogrel 75mg tablet PO SCH (08:00)
--- NOTE | 2025-02-12 09:49 | CONSULTATION REPORT ---
History of Present Illness Providers to CC CC: Earline Chen MD ~ Reason for Admit\Admit Dx: CARDIOLOGY CONSULTATION History of Present Illness This is a 79-year-old female with history of atrial fibrillation status post multiple ablations and left atrial appendage occlusion with atrial clip, coronary artery disease status post PCI of the LAD in 2022, hypertension, hyperlipidemia, rheumatoid arthritis, Terrell's esophagus. Furthermore, has a history of osteomyelitis after and ankle surgery to the left ankle back in 2021. Presented secondary to severe leg pain, increased erythema, swelling and chills. Over the course of her evaluation she was found to have elevated troponins and underwent a stress test that was read as anterolateral ischemia and cardiology consultation was requested with the on-call medical receptionist assistant, Dr. Slade. Patient denies symptoms of chest pain or pressure. No shortness a breath or dyspnea on exertion. No dizziness, lightheadedness or syncope. Complains of continued severe leg pain and is receiving IV antibiotics. Her echocardiogram demonstrates an LVEF of 50-55% with basal mid anteroseptal wall thinning. RV moderately to severely dilated with reduced function. RVSP 45 mm of mercury. EKG is sinus rhythm. Poor R-wave progression. Nonspecific ST changes. Allergies: Coded Allergies: Penicillins (Verified Allergy, Unknown, 02/10/25) Home Medications Home Medications Active Clopidogrel (Clopidogrel Bisulfate) 75 Mg Tablet 75 Mg PO DAILY Do not stop medication unless instructed by prescriber. Reported Cardizem SR* (Diltiazem HCl) 60 Mg Cap.sr.12h 2 Cap PO DAILY K-Dur* (Potassium Chloride) 20 Meq Tab.prt.sr 1 Tab PO DAILY Furosemide 40 Mg Tablet 1 Tab PO DAILY Plaquenil* (Hydroxychloroquine Sulfate) 200 Mg Tablet 1 Tab PO DAILY Neurontin (Gabapentin) 300 Mg Capsule 1 Cap PO TID Trazodone HCl 50 Mg Tablet 1 Tab PO HS Pantoprazole Sodium 40 Mg Tablet.dr 1 Tab PO DAILY Pravastatin Sodium 20 Mg Tablet 1 Tab PO DAILY Calcium 500 + D Tablet (Calcium/Vitamin D) 1 Each Tablet 1 Tab PO Q12H Past Medical History Medical History Comment Atrial fibrillation not on oral anticoagulation status post atrial clip Coronary artery disease Hypertension Hyperlipidemia Rheumatoid arthritis Terrell's esophagus Osteomyelitis Past Surgical History Surgical History Comment Multiple atrial fibrillation ablations PCI as noted above Left ankle surgery--multiple surgeries required. Past Social History Social History Comment Patient is a nonsmoker. Does not drink alcohol or use recreational drugs. Retired and lives with . Physical Exam Last Vital Signs Recorded: RN Vital Signs have been reviewed: Yes, Temperature: 97.9, Source: Oral, Heart Rate: 69, Respiratory Rate: 15, BP: 132/64, Pulse Oximetry: 97, Weight: 86.200 Physical Exam General: Awake, alert, oriented. No apparent distress Neck: Supple. Normal range of motion. No JVD Respiratory: Lungs are clear to auscultation bilaterally. No respiratory distress. Chest: Normal shape and size. No accessory muscle use. Cardiovascular: Regular rate and rhythm. S1-S2. No murmur, gallop, rub. Gastrointestinal: Abdomen is soft. Nontender to palpation. Bowel sounds present. Extremities: Left extremity multiple surgical incisions to the ankle. Swelling is noted. Painful to palpation. Neurologic: Alert and oriented x4. Nonfocal Psychiatric: Normal mood and affect. Skin: Normal color. Warm and dry. Review of Systems ROS Patient complains of left lower extremity pain and chills. No chest pain or pressure. No shortness a breath or any other cardiovascular symptoms currently. Results Echocardiogram Echocardiogram EXAM: Comprehensive 2D, Doppler, and color-flow Echocardiogram. Patient Location: [facility] A Blood Pressure: 118/51 mmHg Heart Rate: 105 bpm Rhythm: Sinus Tachycardia Indications Arrhythmia Hx of Atrial Fibrillation Hx of Stents/CAD Hypertension Atrial Flutter Physical Chemistry Professor: Gaurav Chen MD Previous echo: None 2D Dimensions RVDd 4.3 cm LA Diam 4.5 cm RA Minor 4.6 cm Aortic Root(2D) 3.0 cm LVOT Diameter 1.92 (1.8-2.4cm) IVC 20.47 mm CO 5.5 L/min M-Mode Dimensions RVDd 3.73 (2.1-3.2cm) IVSd 0.99 (0.7-1.1cm) LVDd 4.62 (4.0-5.6cm) Aortic Root 2.53 (2.2-3.7cm) PWd 1.14 (0.7-1.1cm) Aortic Cusp Exc 2.22 (1.5-2.0cm) IVSs 1.28 cm MV EPSS 0.6 (<0.5cm) LVDs 3.33 (2.0-3.8cm) FS (%) 28 % PWs 1.50 cm ESV(Teich) 45.2 ml LVEF(%) 54 (>50%) Aortic Valve AoV Peak Ad. 162.3 cm/s AoV VTI 25.8 cm AO Peak GR. 10.5 mmHg AO Mean GR. 6 mmHg LVOT VTI 21.95 cm LVOT Peak Ad. 139.9 cm/s JERARDO(VTI)/BSA 2.45 cm2/m2 JERARDO (VTI) 2.45 cm2 Mitral Valve MV E Velocity 101.9 cm/s MV Peak Gr. 5 mmHg MV Mean Gr. 2 mmHg MV PHT 60 ms MVA (PHT) 3.67 cm2 MV VMax 115.6 cm/s MV VMean 61.9 cm/s MVA VTI 3.19 cm2 MV VTI 19.8 cm TDI Medial E' P. V 8.12 cm/s E/Medial E' 12.5 Pulmonary Valve RVOT VTI 14.6 cm Tricuspid Valve TR P. Velocity 273 cm/s RAP ESTIMATE 15 mmHg TR Peak Gr. 30 mmHg RVSP 45 mmHg Pulmonary Vein S1 Velocity 64.3 cm/s D2 Velocity 55.3 cm/s PVa Velocity 21.0 cm/s PVa Duration 80 msec LEFT VENTRICLE Normal LV size and wall thickness. Basal and mid anteroseptal segments appear thinned and mildly hypokinetic. Overall systolic function is mildly reduced. Overall LVEF is 50-55%. RIGHT VENTRICLE Right ventricle is moderate to severely dilated with reduced systolic function. Estimated PA systolic pressure is 45 mmHg. ATRIA Moderate biatrial enlargement. AORTIC VALVE Trileaflet AV appears sclerotic without stenosis. Trace insufficiency. MITRAL VALVE Mild MV annular calcification. Posterior Mitral leaflet is calcified and thickened with reduced excursion. No stenosis with mild regurgitation. TRICUSPID VALVE TV appears structurally normal with trace regurgitation. PULMONIC VALVE Normal PV without stenosis, physiologic insufficiency. GREAT VESSELS The aortic root is normal in size. IVC is dilated and collapses less than 50% with inspiration. PERICARDIUM Normal pericardium. No pericardial effusion seen. Other Information Study Quality: Adequate Conclusion Normal LV size and wall thickness. Basal and mid anteroseptal segments appear thinned and mildly hypokinetic. Overall systolic function is mildly reduced. Overall LVEF is 50-55%. Right ventricle is moderate to severely dilated with reduced systolic function. Estimated PA systolic pressure is 45 mmHg. Moderate biatrial enlargement. Trileaflet AV appears sclerotic without stenosis. Trace insufficiency. Mild MV annular calcification. Posterior Mitral leaflet is calcified and thickened with reduced excursion. No stenosis with mild regurgitation. TV appears structurally normal with trace regurgitation. The aortic root is normal in size. Normal pericardium. No pericardial effusion seen. Dictated by:BRADEN COE MD Dictation date and time:02/10/25 1848 Cardiac Stress Test Cardiac Stress Test Procedure: [facility] Exam Date: 02/11/2025 01:13 PM Reason for study/Clinical History: elevated trops Comparison Study: None Myocardial Perfusion Study with SPECT Technique: The patient received an intravenous injection of 8 mCi of technetium-99m sestamibi while at rest. After a short delay, SPECT tomographic images of the heart were obtained. The patient then went to the stress lab where they received an intravenous infusion of 0.4 mg lexiscan utilizing standard protocol. 33 mCi of technetium-99m sestamibi was injected intravenously immediately after the start of the lexiscan infusion. Gated SPECT tomographic images of the heart were acquired and processed. Findings: Reversible defect of the anterolateral wall. End diastolic volume: 83 mL End systolic volume: 34 mL The left ventricular ejection fraction is 59 %. (normal greater than 50%) Impression: Reversible defect of the anterolateral wall. The left ventricular ejection fraction is 59 %. Electronically Signed by:RICHARD LAMBERT MD Date & Time: 02/11/25 1639 Dictated by: RICHARD LAMBERT MD Dictation date and time: 02/11/25 1639 X-ray X-ray CHEST RADIOGRAPH Indication: SEPSIS Technique: Single frontal view of the chest was obtained COMPARISON: DI CHEST,SINGLE VIEW on DOS: 05/17/23, CHEST,SINGLE VIEW on DOS: 07/20/21 FINDINGS: Lines and Tubes: None Lungs: Clear Pleura: No effusion. No pneumothorax. Cardiomediastinal contours: Unremarkable. Atherosclerotic vascular calcifications. Bones: Unremarkable IMPRESSION: 1. No acute disease. Electronically Signed by:CARLOS PENG MD Date & Time: 02/10/25 0319 Other Other Left Lower Extremity Arterial Duplex Clinical History: Pain Comparison: None Technique: Duplex Doppler evaluation including color Doppler and spectral/pulsed waveform analysis of the lower extremity arteries was performed. Findings: LEFT: Peak systolic velocities are as follows: W[employer]ATE ASSEM[employer]ER 143 cm/s Deep femoral 112 cm/s SFA proximal 141 cm/s SFA mid-portion 151 cm/s SFA distal 1 51 cm/s Popliteal 104 cm/s Posterior tibial 110 cm/s Anterior tibial 52 cm/s Peroneal not visualized cm/s Dorsalis pedis 52 cm/s The waveforms are monophasic with diastolic flow. IMPRESSION: 20-49% stenosis of the left superficial femoral artery based on peak systolic velocity criteria. Monophasic arterial waveforms are present suggestive of underlying peripheral arterial disease. VASC VL VENOUS HISTORY: edema COMPARISON: None TECHNIQUE: Duplex doppler evaluation of the deep venous system of the lower extremity from the common femoral veins, superficial femoral vein, great saphenous vein, deep femoral vein, popliteal vein, and calf veins, including color doppler and spectral/pulsed waveform analysis, was performed. FINDINGS: Right: - Common femoral vein: Compressible - Deep femoral vein: Compressible - Femoral vein: Compressible - Popliteal vein: Compressible - Posterior tibial vein: Waveforms present - Peroneal vein: Waveforms present - Other: Nothing Left: - Common femoral vein: Compressible - Deep femoral vein: Compressible - Femoral vein: Compressible - Popliteal vein: Compressible - Other: Nothing IMPRESSION: No right or left lower extremity deep venous thrombosis. Exam: CT LOWER EXTREMITY INDICATION: LEFT LE cellulitis COMPARISON: Plain films of 02/10/2025 TECHNIQUE: CT of the left leg was performed without contrast. Volume transverse images were obtained and reconstructed in multiple planes using bone and soft tissue algorithms. Contrast: 100 cc of Omnipaque. Radiation Dose Information: CT Dose: CTDI volume is 15 mGy. Dose-length product is 618 mGy*cm FINDINGS: Old fracture seen of the proximal to mid tibia and fibula. Postoperative change seen with ankle fusion. Distal fibular resection. Surgical clips seen in the soft tissues consistent with plain films. Atrophic changes seen of the musculature of the left lower extremity. No soft tissue abscess. No acute fracture. Edematous changes seen of the soft tissues compatible with cellulitis. IMPRESSION: 1. No acute fracture. No abscess. Soft tissue swelling Cellulitis Postoperative changes. All CT scans at this medical facility are performed using dose modulation techniques as appropriate to a performed exam including the following: Automated exposure control was utilized; adjustment of the MA and/or KV according to patient size; and use of iterative reconstruction technique. Diagram Lab Result Diagram: 02/12/2542502/12/25425 Lab Results Lipids: Triglycerides 39, total cholesterol 88, LDL 13, HDL 62 Procalcitonin 5.62 NT proBNP 991 Assessment/Plan Additional Plan This is a 79-year-old female who presents for leg pain and cellulitis. Cardiology consultation was requested secondary to an incidental finding of elevated troponins and positive stress test. The following is her problem list: NSTEMI High sensitivity troponin 76. The next day troponins were again measured which were 210, 226 Lexiscan stress test reversibility in the anterolateral wall No cardiovascular symptoms reported. --recommend medical management --aspirin 81 mg daily and Plavix 75 mg daily. --continue statin. LDL less than 55. --encouraged follow up with primary medical receptionist assistant. History of coronary artery disease Angiogram from 2022 was reviewed. There was obstructive coronary artery disease involving a 75% stenosis of the principal diagonal branch of the LAD which was successfully stented. Other nonobstructive coronary artery disease involving the origin of the circumflex (30-40%), prox RCA (50%), posterolateral brach of RCA (40%). --recommend continued medical management and outpatient follow up as above. Right-sided heart failure TTE demonstrates preserved LVEF with basal mid anteroseptal thinning. RV moderately to severely dilated with reduced function. RVSP 45 mm of mercury --recommend outpatient follow up with primary medical receptionist assistant for further evaluation and management of possible pulmonary hypertension Atrial fibrillation Currently maintaining sinus rhythm. She is status post five ablations and left atrial appendage clip. Not on oral anticoagulation --continue outpatient follow up. Left ankle cellulitis --management per hospitalist Other comorbidities: Hypertension Hyperlipidemia Rheumatoid arthritis History of osteomyelitis Case discussed with Dr. Lawrence Slade. In agreement with the above plan. For any further cardiology needs please do not hesitate to recontact us. Otherwise, patient will follow up with her primary medical receptionist assistant. Supervising MD Supervising Physician: CAM Mack NP Feb 12, 2025 09:49
[2025-02-12 10:00] VITALS: BP 101/61; PULSE 76; RESP 18; TEMP 97.7; O2SAT 96
[2025-02-12 13:00] VITALS: BP 143/74; PULSE 84
[2025-02-12] MEDS: HYDROcodone/acetaminophen 5mg/325mg tablet PO PRN (13:11)
[2025-02-12] MEDS ORDERED: normal saline 500ml IV soln 500 ML IV PRN (16:05)
[2025-02-12 18:00] VITALS: BP 109/50; PULSE 69; RESP 18; TEMP 97.5; O2SAT 94
--- NOTE | 2025-02-12 19:14 | PROGRESS NOTE ---
Daily Progress Note Providers to CC ~ no new complaint today resting comfortably in the bed Central Line/PICC still needed: No Milligan-Non Protocol Milligan Indications Met/Not Met: F/C Indications Not Met Antibiotic Timeout Antibiotic Ordered?: Yes MRSA Education MRSA Education Provided to pt: Yes Subjective As above Objective Vital Signs Date Time Temp Pulse Resp B/P (MAP) Pulse Ox O2 Delivery O2 Flow Rate FiO2 02/12/25 13:00 84 143/74 (97) 02/12/25 10:00 97.7 18 96 Room Air 02/12/25 06:00 2.0 Vital signs, stable ,afebrile. Pulse Oximetry reflects adequate oxygenation. General: well developed, well nourished. Awake , alert, and oriented x4, resting comfortably in the bed, in no acute distress . Skin: Warm, dry, no pallor, no rash or petechiae. HEENT: Atraumatic, normocephalic, EOMI, anicteric sclera B; pink conjunctiva; PERRLA, normal oropharynx, moist oral and nasal mucosa. Tympanic membrane , nose , throat clear. Neck: Trachea midline. Supple, full range of motion, no JVD, bruit , hepatojugular reflex , lymphadenopathy or masses, or other lesions Cardiac: Regular rhythm, regular rate no murmurs, rubs, or gallops. Normal S1 and S2, no S3 noticed. PMI is normal. Respiratory: Equal breath sounds bilaterally, no tachypnea; lungs clear to auscultation bilaterally, no wheezing ,rub or rales, or crackles. Chest wall is symmetric and without deformity. No signs of trauma. Chest wall is nontender. No signs of respiratory distress. Resonance is normal upon percussion bilaterally. Gastrointestinal: Abdomen symmetric, non-distended, soft, non-tender, normal bowel sounds x4 quadrant, normoactive, no hepatosplenomegaly , no masses , no bruit, no flank pain bilaterally. No voluntary guarding, rebound, or rigidity. No tenderness to percussion. No pulsatile masses. Equal femoral pulses. No Richey's sign or McBurney point tenderness. Back; no CVA tenderness bilaterally, no deformities. Neck and back are without deformity as well. No tenderness noted on palpation of the spinous processes. Spinous processes are midline. Cervical, thoracic, and lumbar paraspinal muscles are not tender and are without spasm. Locally, left lower leg and foot red, admissions, tender to palpation, hot to touch, neurovascular grossly intact Musculoskeletal: Extremities, normal range of motion, non-tender, muscle strength 5/5 x 4. Negative Homans signs bilaterally on lower extremity. Distal pulses full symmetrical, no clubbing, cyanosis , edema. Neurological: Speech is clear, alert, and oriented x 4. No motor or sensory deficit, deep tendon reflexes normal, cerebellar intact. Cranial nerves II-XII intact. Psych: Alert and or appropriate, normal affect. Vascular: Good distal pulses, which are equal x4; capillary refill less than 2 seconds. Lymphatic, no lymphadenopathy. Result Diagram: 02/12/25 0426 02/12/25 0426 Coagulation Studies Laboratory Tests Test 02/11/25 16:15 02/11/25 22:04 Prothrombin Time 13.3 SECONDS (9.0-12.0) H INR International Normalized Ratio 1.3 INR Activated Partial Thromboplast Time 35 SECONDS (22-32) H APTT (Heparin Protocol) 48 SECONDS (45-60) Coagulation Comments Problem\Assessment\Plan # Cellulitis, LLE secondary to chronic lymphedema, not secondary to previous left ankle multiple surgery # Sepsis 2/2 cellulitis- POA # s/p left ankle fusion -on vancomycin, ceftriaxone, IVF -Arterial ultrasound shows mild stenosis of left lower extremity, venous ultrasound negative for DVT. CT shows cellulitis of left lower extremity without evidence of abscess. Follow bone scan. # Prerenal LIUS 2/2 sepsis/vasomotor nephropathy # Hyperkalemia 2/2 LUIS -02/11: mild hyperkalemia, Lokelma given, follow labs # NSTEMI- POA -trops uptrended, heparin drip started, Lexiscan today reversible defect of the anterolateral wall. Consulted Dr. Lawrence Slade. Recommendations to be implemented # Atrial fibrillation, CVR (tax economist Dr. Allen) # CAD s/p stent (2022) -continue home diltiazem, anticoagulant, aspirin # Rheumatoid arthritis -supportive care Code Status: Full Code Sepsis Screening Reassessment Date: Feb 12, 2025 Date of Service: Feb 12, 2025 Billing Provider: YUDI NICOLAS MD Common Visit Codes: [id number] INP/OBS CARE(HIGH) YUDI NICOLAS MD Feb 12, 2025 19:14
[2025-02-12 22:00] VITALS: BP 149/90; PULSE 101; RESP 15; TEMP 97.7; O2SAT 95
[2025-02-13 06:00] VITALS: BP 156/79; PULSE 70; RESP 14; TEMP 98.1; O2SAT 96
[2025-02-13] MEDS: VANCOMYCIN LEVEL IV ONE (06:22)
[2025-02-13 08:00] VITALS: RESP 14; O2SAT 96
[2025-02-13 08:09] LABS: ALANINE AMINOTRANSFERASE 28 U/L (12-78); ALBUMIN 2.3 G/DL (3.4-5.0); ALBUMIN/GLOBULIN RATIO 0.7 (1.1-1.5); ALKALINE PHOSPHATASE 64 IU/L (46-116); ANION GAP 7 (8-16); ASPARTATE AMINO TRANSFERASE 27 U/L (10-37); BILIRUBIN,TOTAL 0.6 MG/DL (0.1-1.0); BLOOD UREA NITROGEN 18 MG/DL (7-18); BUN/CREATININE RATIO 23.4 (10.0-20.0); CALCIUM 7.9 MG/DL (8.5-10.1); CHLORIDE 111 MMOL/L (99-107); CREATININE 0.77 MG/DL (0.40-0.90); GLUCOSE 94 MG/DL (70-104); POTASSIUM 3.8 MMOL/L (3.5-5.1); SODIUM 139 MMOL/L (135-145); TOTAL CARBON DIOXIDE 21.1 MMOL/L (24-32); TOTAL PROTEIN 5.7 G/DL (6.4-8.2); eCRCL 67 ML/MIN; eGFR 73 ML/MIN
[2025-02-13 08:15] LABS: BASOPHILS % (AUTO) 0.1 % (0-1); EOSINOPHILS # (AUTO) 0.1 X10'3 (0-0.9); EOSINOPHILS % (AUTO) 0.4 % (0-6); HEMATOCRIT 30.9 % (35.0-45.0); HEMOGLOBIN 10.4 g/dl (12.0-16.0); LYMPHOCYTES # (AUTO) 0.5 X10'3 (1.1-4.8); LYMPHOCYTES % (AUTO) 3.7 % (21-51); MEAN CORPUSCULAR HGB CONC 33.8 g/dL (33.0-36.5); MEAN CORPUSCULAR VOLUME 91.7 FL (78-98); MEAN PLATELET VOLUME 8.7 FL (7.4-10.4); MONOCYTES # (AUTO) 0.9 X10'3 (0-0.9); MONOCYTES % (AUTO) 7.5 % (2-12); NEUTROPHILS # (AUTO) 10.8 X10'3 (1.8-7.7); NEUTROPHILS % (AUTO) 88.3 % (42-75); PLATELET COUNT 105 X10'3 (140-440); RED BLOOD COUNT 3.37 X10'6 (4.20-5.60); RED CELL DISTRIBUTION WIDTH 17.6 % (11.5-14.5); WHITE BLOOD COUNT 12.2 X10'3 (4.5-11.0)
[2025-02-13 09:08] LABS: PLATELET ESTIMATE DECREASED; TOTAL CELLS COUNTED 100
[2025-02-13 09:09] LABS: ANISOCYTOSIS 1+; ELLIPTOCYTES FEW; SCHISTOCYTES FEW
[2025-02-13] MEDS: clopidogrel 75mg tablet PO SCH (09:09)
[2025-02-13 09:10] LABS: BURR CELLS FEW
--- NOTE | 2025-02-13 15:28 | RADIOLOGY REPORT ---
EXAM: NM NM BONE SCAN History: LLE cellulitis, presence of ankle fusion intramedullary charlene and screws Comparison Study: None TECHNIQUE: Immediately after the radiopharmaceutical, flow images of the were acquired, followed by blood pool images of the 25.72 . Then, approximately 3 hours later, additional images of th e were acquired. Anterior and posterior whole body images were also acquired. CONTRAST MEDIA AND RADIOPHARMACEUTICALS: FINDINGS: Flow images are nondiagnostic. Blood pool images demonstrate increased soft tissue radiotracer uptake in the mid to distal left hernandez and ankle. Possible increased radiotracer uptake in the left foot. Delayed images demonstrate increased radiotracer uptake along the left distal tibia and foot in the setting of known ankle fusion. IMPRESSION: 1. Nondiagnostic flow images. 2. Diffuse increased soft tissue radiotracer uptake along the left mid to distal hernandez and ankle favor ed to reflect cellulitis. 3. Increased radiotracer uptake along the left distal tibia and foot on the delayed images is nonspec ific, given history of ankle fusion.
[2025-02-13 18:00] VITALS: BP 153/80; PULSE 71; RESP 16; TEMP 98.1; O2SAT 98
[2025-02-13] MEDS ORDERED: VANCOMYCIN 1,500MG in NS 300ml IVPB IV SCH (18:00)
--- NOTE | 2025-02-13 19:04 | PROGRESS NOTE ---
Daily Progress Note Providers to CC ~ new complaint today pain in the left lower extremity improving Central Line/PICC still needed: No Milligan-Non Protocol Milligan Indications Met/Not Met: F/C Indications Not Met Antibiotic Timeout Antibiotic Ordered?: Yes MRSA Education MRSA Education Provided to pt: Yes Subjective As above Objective Vital Signs Date Time Temp Pulse Resp B/P (MAP) Pulse Ox O2 Delivery O2 Flow Rate FiO2 02/13/25 08:00 14 96 Room Air 02/13/25 06:00 98.1 70 156/79 (104) 02/12/25 06:00 2.0 Vital signs, stable ,afebrile. Pulse Oximetry reflects adequate oxygenation. General: well developed, well nourished. Awake , alert, and oriented x4, resting comfortably in the bed, in no acute distress . Skin: Warm, dry, no pallor, no rash or petechiae. HEENT: Atraumatic, normocephalic, EOMI, anicteric sclera B; pink conjunctiva; PERRLA, normal oropharynx, moist oral and nasal mucosa. Tympanic membrane , nose , throat clear. Neck: Trachea midline. Supple, full range of motion, no JVD, bruit , hepatojugular reflex , lymphadenopathy or masses, or other lesions Cardiac: Regular rhythm, regular rate no murmurs, rubs, or gallops. Normal S1 and S2, no S3 noticed. PMI is normal. Respiratory: Equal breath sounds bilaterally, no tachypnea; lungs clear to auscultation bilaterally, no wheezing ,rub or rales, or crackles. Chest wall is symmetric and without deformity. No signs of trauma. Chest wall is nontender. No signs of respiratory distress. Resonance is normal upon percussion bilaterally. Gastrointestinal: Abdomen symmetric, non-distended, soft, non-tender, normal bowel sounds x4 quadrant, normoactive, no hepatosplenomegaly , no masses , no bruit, no flank pain bilaterally. No voluntary guarding, rebound, or rigidity. No tenderness to percussion. No pulsatile masses. Equal femoral pulses. No Richey's sign or McBurney point tenderness. Back; no CVA tenderness bilaterally, no deformities. Neck and back are without deformity as well. No tenderness noted on palpation of the spinous processes. Spinous processes are midline. Cervical, thoracic, and lumbar paraspinal muscles are not tender and are without spasm. Locally, left lower leg,, redness and edema improving mild tender Musculoskeletal: Extremities, normal range of motion, non-tender, muscle strength 5/5 x 4. Negative Homans signs bilaterally on lower extremity. Distal pulses full symmetrical, no clubbing, cyanosis , edema. Neurological: Speech is clear, alert, and oriented x 4. No motor or sensory deficit, deep tendon reflexes normal, cerebellar intact. Cranial nerves II-XII intact. Psych: Alert and or appropriate, normal affect. Vascular: Good distal pulses, which are equal x4; capillary refill less than 2 seconds. Lymphatic, no lymphadenopathy. Result Diagram: 02/13/25 0746 02/13/25 0746 Coagulation Studies Laboratory Tests Test 02/11/25 16:15 02/11/25 22:04 Prothrombin Time 13.3 SECONDS (9.0-12.0) H INR International Normalized Ratio 1.3 INR Activated Partial Thromboplast Time 35 SECONDS (22-32) H APTT (Heparin Protocol) 48 SECONDS (45-60) Coagulation Comments Problem\Assessment\Plan # Cellulitis, LLE # Sepsis 2/2 cellulitis- POA # s/p left ankle fusion -on vancomycin, ceftriaxone, IVF -Arterial ultrasound shows mild stenosis of left lower extremity, venous ultrasound negative for DVT. CT shows cellulitis of left lower extremity without evidence of abscess. Follow bone scan. # Prerenal LUIS 2/2 sepsis/vasomotor nephropathy # Hyperkalemia 2/2 LUIS -02/11: mild hyperkalemia, Lokelma given, follow labs # NSTEMI- POA -trops uptrended, heparin drip started but discontinued per consulting metal solderer recommendation, Lexiscan today reversible defect of the anterolateral wall. Consulted Dr. Lawrence Slade. # Atrial fibrillation, CVR (metal solderer Dr. Allen) # CAD s/p stent (2022) -continue home diltiazem, anticoagulant, aspirin # Rheumatoid arthritis -supportive care Code Status: Full Code Date of Service: Feb 13, 2025 Billing Provider: YUDI NICOLAS MD Common Visit Codes: [id number] INP/OBS CARE(HIGH) YUDI NICOLAS MD Feb 13, 2025 19:04
[2025-02-13 20:00] VITALS: RESP 16; O2SAT 97
[2025-02-13] MEDS: VANCOMYCIN/WATER FOR INJ (PEG) 1.5GM/300 ML IVPB IV SCH (21:31)
[2025-02-13 21:45] VITALS: BP 136/72; PULSE 91; O2SAT 97
[2025-02-13 22:00] VITALS: BP 115/59; PULSE 54; RESP 16; TEMP 97.7; O2SAT 99
[2025-02-14 05:28] VITALS: O2SAT 97
[2025-02-14 05:39] LABS: BASOPHILS % (AUTO) 0.2 % (0-1); EOSINOPHILS % (AUTO) 0.3 % (0-6); HEMATOCRIT 32.6 % (35.0-45.0); LYMPHOCYTES # (AUTO) 0.6 X10'3 (1.1-4.8); LYMPHOCYTES % (AUTO) 5.6 % (21-51); MEAN CORPUSCULAR HEMOGLOBIN 30.4 PG (27.0-31.0); MEAN CORPUSCULAR HGB CONC 33.8 g/dL (33.0-36.5); MEAN PLATELET VOLUME 8.7 FL (7.4-10.4); MONOCYTES # (AUTO) 1.1 X10'3 (0-0.9); MONOCYTES % (AUTO) 10.9 % (2-12); NEUTROPHILS # (AUTO) 8.7 X10'3 (1.8-7.7); PLATELET COUNT 112 X10'3 (140-440); RED BLOOD COUNT 3.62 X10'6 (4.20-5.60); RED CELL DISTRIBUTION WIDTH 17.1 % (11.5-14.5); WHITE BLOOD COUNT 10.5 X10'3 (4.5-11.0)
[2025-02-14 05:52] LABS: ALANINE AMINOTRANSFERASE 28 U/L (12-78); ALBUMIN 2.2 G/DL (3.4-5.0); ALBUMIN/GLOBULIN RATIO 0.6 (1.1-1.5); ALKALINE PHOSPHATASE 83 IU/L (46-116); ANION GAP 13 (8-16); ASPARTATE AMINO TRANSFERASE 23 U/L (10-37); BILIRUBIN,TOTAL 0.5 MG/DL (0.1-1.0); BLOOD UREA NITROGEN 16 MG/DL (7-18); BUN/CREATININE RATIO 21.3 (10.0-20.0); CALCIUM 8.1 MG/DL (8.5-10.1); CHLORIDE 110 MMOL/L (99-107); CREATININE 0.75 MG/DL (0.40-0.90); GLUCOSE 99 MG/DL (70-104); POTASSIUM 3.5 MMOL/L (3.5-5.1); SODIUM 141 MMOL/L (135-145); TOTAL CARBON DIOXIDE 18.5 MMOL/L (24-32); TOTAL PROTEIN 5.7 G/DL (6.4-8.2); eCRCL 69 ML/MIN; eGFR 75 ML/MIN
[2025-02-14 06:00] VITALS: BP 146/87; PULSE 66; RESP 16; TEMP 97.5; O2SAT 95
[2025-02-14 07:18] LABS: ANISOCYTOSIS 1+; PLATELET ESTIMATE DECREASED; TOTAL CELLS COUNTED 100
[2025-02-14 07:19] LABS: BURR CELLS FEW; ELLIPTOCYTES FEW; TEAR DROP CELLS FEW
[2025-02-14 10:00] VITALS: BP 129/69; PULSE 102; RESP 16; TEMP 97.3; O2SAT 97
[2025-02-14] MEDS ORDERED: CLAR250T39 PO (10:39)
--- NOTE | 2025-02-14 17:50 | DISCHARGE SUMMARY ---
Discharge Summary Providers to No new complaint today asking to be discharged home ~ Discharge Summary Assessment Left lower extremity cellulitis Chronic left lower extremity lymphedema in exacerbation Non ST-elevation GA type 2 secondary to above Chronic kidney disease Atrial fibrillation controlled ventricular rate History of coronary artery disease status post stenting Rheumatoid arthritis chronic Admission Diagnosis: LEFT LEG CELLULITIS Admission Diagnosis Comment: Left lower extremity cellulitis Chronic left lower extremity lymphedema in exacerbation Non ST-elevation GA type 2 secondary to above Chronic kidney disease Atrial fibrillation controlled ventricular rate History of coronary artery disease status post stenting Rheumatoid arthritis chronic Hospital Course DATE OF ADMISSION: February 10, 2025 DATE OF DISCHARGE: February 14, 2025 Discharge Diagnosis\Comment: Left lower extremity cellulitis Chronic left lower extremity lymphedema in exacerbation Non ST-elevation GA type 2 secondary to above Chronic kidney disease Atrial fibrillation controlled ventricular rate History of coronary artery disease status post stenting Rheumatoid arthritis chronic Operations\Procedures: Non Consultants: Cardiology Complications: Non Condition on DC: Stable Discharge Summary: A 79-year-old woman presented to the ER with severe left leg pain by paramedics. Left lower extremity pain started on last night, very severe, rated 10/10, aggravated with movements on tired. Patient and noticed that her distal lateral left leg appeared more swollen than usual and was red and hot to touch. Patient denies any fevers. Patient took a dose of amoxicillin last night. Patient has multiple orthopedic surgeries to the left ankle and had a large skin flap over the left lateral distal leg for prior infection . The skin flap was placed because of prior infection. Patient denies chest pain. No shortness a breath. No known fever. No nausea vomiting diarrhea. To admission patient was extensively evaluated treated, today she feels fine asking to be discharged home she will be discharged in stable condition, medication reconciled follow-up PCP Cardiology in two days, today on physical exam Vital signs, stable ,afebrile. Pulse Oximetry reflects adequate oxygenation. General: well developed, well nourished. Awake , alert, and oriented x4, resting comfortably in the bed, in no acute distress . Skin: Warm, dry, no pallor, no rash or petechiae. HEENT: Atraumatic, normocephalic, EOMI, anicteric sclera B; pink conjunctiva; PERRLA, normal oropharynx, moist oral and nasal mucosa. Tympanic membrane , nose , throat clear. Neck: Trachea midline. Supple, full range of motion, no JVD, bruit , hepatojugular reflex , lymphadenopathy or masses, or other lesions Cardiac: Regular rhythm, regular rate no murmurs, rubs, or gallops. Normal S1 and S2, no S3 noticed. PMI is normal. Respiratory: Equal breath sounds bilaterally, no tachypnea; lungs clear to auscultation bilaterally, no wheezing ,rub or rales, or crackles. Chest wall is symmetric and without deformity. No signs of trauma. Chest wall is nontender. No signs of respiratory distress. Resonance is normal upon percussion bilaterally. Gastrointestinal: Abdomen symmetric, non-distended, soft, non-tender, normal bowel sounds x4 quadrant, normoactive, no hepatosplenomegaly , no masses , no bruit, no flank pain bilaterally. No voluntary guarding, rebound, or rigidity. No tenderness to percussion. No pulsatile masses. Equal femoral pulses. No Richey's sign or McBurney point tenderness. Back; no CVA tenderness bilaterally, no deformities. Neck and back are without deformity as well. No tenderness noted on palpation of the spinous processes. Spinous processes are midline. Cervical, thoracic, and lumbar paraspinal muscles are not tender and are without spasm. : normal external genitalia, without lesions, swelling, masses or tenderness. Musculoskeletal: Extremities, normal range of motion, non-tender, muscle strength 5/5 x 4. Negative Homans signs bilaterally on lower extremity. Distal pulses full symmetrical, no clubbing, cyanosis , edema. Neurological: Speech is clear, alert, and oriented x 4. No motor or sensory deficit, deep tendon reflexes normal, cerebellar intact. Cranial nerves II-XII intact. Psych: Alert and or appropriate, normal affect. Vascular: Good distal pulses, which are equal x4; capillary refill less than 2 seconds. Lymphatic, no lymphadenopathy. *Problems/Diagnosis: (1) Afib (2) Cellulitis of left leg Status: Acute Total Time Spent on D/C: > 30 Minutes Date of Service: Feb 14, 2025 Billing Provider: YUDI NICOLAS MD Common Visit Codes: 08070-BZR/OBS DISCH DAY >30min YUDI NICOLAS MD Feb 14, 2025 17:50
[2025-02-15] MEDS ORDERED: VANCOMYCIN LEVEL IV ONE (05:30)
== END 2025-02-14 11:40 | disposition home or self-care (01) | DRG 871 ==
LOC: ER 02:41 → ED HOLD 04:24 → EDBEDREQ 05:10 → ORTHO 4S 07:40
PROVIDERS: ADMIT Internal Medicine Critical Care Medicine; ATTEND Nurse Practitioner Family
PROC: 4A02XM4 Measurement of Cardiac Total Activity, External Approach (ICD-10-PCS; principal; 2025-02-11)
PROC: 3E033HZ Introduction of Radioactive Substance into Peripheral Vein, Percutaneous Approach (ICD-10-PCS; 2025-02-11)
PROC: CW1D1ZZ Planar Nuclear Medicine Imaging of Lower Extremity using Technetium 99m (Tc-99m) (ICD-10-PCS; 2025-02-13)
DX: A41.9 Sepsis, unspecified organism (principal); I21.A1 Myocardial infarction type 2; N17.0 Acute kidney failure with tubular necrosis; L03.116 Cellulitis of left lower limb; I25.10 Atherosclerotic heart disease of native coronary artery without angina pectoris; I48.91 Unspecified atrial fibrillation; I12.9 Hypertensive chronic kidney disease with stage 1 through stage 4 chronic kidney disease, or unspecified chronic kidney disease; E87.5 Hyperkalemia; E78.5 Hyperlipidemia, unspecified; M06.9 Rheumatoid arthritis, unspecified; N18.9 Chronic kidney disease, unspecified; Z88.0 Allergy status to penicillin
CPT/HCPCS: 36415; 71045; 73600; 73701; 78315; 78452; 80053; 80061; 80202; 82948; 83605; 83735; 83880; 84132; 84145; 84484; 85007; 85025; 85610; 85730; 87040; 87081; 93005; 93017; 93306; 93926; 93970; 96361; 96365; 96367; 96375; 97116; 97162; 97530; 99285; A6449; A9500; A9503; G0378; J0690; J0696; J1171; J1644; J2785; J3370; J3372; J7030; Q9967

== ENCOUNTER 2025-03-22 08:01 | Day surgery (SDC) | payer MEDICARE, OTHER ==
[~2025-03-22] VITALS: Ht 180.3 cm; Wt 85.1 kg
[2025-03-22] VITALS (10 sets, daily range): BP systolic 103–151; BP diastolic 48–75; PULSE 63–80; RESP 10–18; TEMP 98.2; O2SAT 93–98
[~2025-03-22 08:01] MED LIST changes: +CARSR60C PO; +CLAR250T39 PO; -FERR325T28 PO; -METO-395 PO; +PRAV20TA17 PO; -PRAV20TA4 PO; -WARF4TAB69 PO; -WARF6TAB49 PO
--- NOTE | 2025-03-22 08:34 | ELECTROCARDIOGRAPH REPORT ---
[facility] Test Date: 2025-03-22 Test Time: 08:33:25 Pat Name: MELVA TRINIDAD Department: [facility] Patient ID: [id number] Room: Gender: F Hospital Sales Representative: JENNIFER : 1945 Requested By: SUZAN HOLM Order Number: [id number] Reading MD: Dr. DELONTE Rubio Measurements Intervals Thornton Rate: 72 P: -59 OH: 247 QRS: -33 QRSD: 93 T: 64 QT: 383 QTc: 420 Interpretive Statements Sinus or ectopic atrial rhythm Ventricular premature complex Prolonged OH interval Left ventricular hypertrophy Electronically Signed On 03-22-2025 15:34:[address] DELONTE Rubio Please click the below link to view image of tracing.
[2025-03-22] MEDS ORDERED: OSC500T PO (08:37)
[2025-03-22] MEDS ORDERED: CHOL200059 PO (08:39)
[2025-03-22] MEDS ORDERED: DILT-35 PO (08:43)
[2025-03-22] MEDS ORDERED: CLOP75TA34 PO (08:44)
[2025-03-22 08:57] LABS: MEAN PLATELET VOLUME 6.9 FL (7.4-10.4); RED CELL DISTRIBUTION WIDTH 17.9 % (11.5-14.5)
[2025-03-22 09:10] LABS: INR 1.1 INR
[2025-03-22 09:17] LABS: CREATININE 0.70 MG/DL (0.40-0.90); TOTAL CARBON DIOXIDE 27.3 MMOL/L (24-32); eCRCL 74 ML/MIN; eGFR 81 ML/MIN
[2025-03-22] MEDS: sodium bicarbonate 1meq/ml syr 150 ML in dextrose 5%-water 1,000 ML IV ONE (09:29)
[2025-03-22] MEDS: normal saline 1000ml 1,000 ML IV SCH (09:30)
[2025-03-22] MEDS: potassium Cl 20 mEq SR tablet PO STA (10:15)
[2025-03-22] MEDS ORDERED: fentaNYL/PF 50MCG/1 ML 2ML syringe ONE (10:17)
[2025-03-22] MEDS ORDERED: heparin 1,000unit/ml 10ml vial 10 ML ONE (10:17)
[2025-03-22] MEDS ORDERED: midazolam 1 mg/ML 2ml injection ONE ×2 (10:17→11:24)
[2025-03-22] MEDS ORDERED: verapamil 2.5 mg/ml inj IV ONE (10:17)
[2025-03-22] MEDS ORDERED: iohexol 350 MG/ML 50ML vial IV ONE ×2 (10:17→11:18)
[2025-03-22] MEDS ORDERED: LIDOcaine 1% (10mg/ml) 2ml vial ONE (10:17)
[2025-03-22] MEDS ORDERED: nitroGLYCERIN 500mcg/5mL D5W 5 ML IV ONE (10:19)
[2025-03-22 10:34] LABS: BANDS% (MANUAL) 1.0 % (0-10); BASOPHILS % (MANUAL) 1.0 % (0-1); EOSINOPHILS % (MANUAL) 1.0 % (0-6); LYMPHOCYTES % (MANUAL) 9.0 % (21-51); METAMYLEOCYTES% (MANUAL) 2.0 % (0-0); MONOCYTES % (MANUAL) 5.0 % (2-12); NEUTROPHILS % (MANUAL) 81.0 % (42-75)
[2025-03-22 10:35] LABS: ELLIPTOCYTES FEW; PLATELET ESTIMATE NORMAL
[2025-03-22] MEDS ORDERED: MIDAZolam 1mg/ml 10ml vial IV ONE (11:00)
[2025-03-22] MEDS ORDERED: fentaNYL/PF 50MCG/1 ML 2ML syringe IV ONE (11:00)
[2025-03-22] MEDS ORDERED: clopidogrel 300mg tablet ONE (11:37)
[2025-03-22] MEDS ORDERED: HYDROcodone/acetaminophen 10/325mg tab PO PRN (12:15)
[2025-03-22] MEDS ORDERED: HYDROcodone/acetaminophen 5mg/325mg tablet PO PRN (12:15)
[2025-03-22] MEDS ORDERED: ondansetron/PF 4mg/2ml inj IV PRN (12:15)
--- NOTE | 2025-03-22 12:27 | CARDIOLOGY REPORT ---
DATE OF SERVICE: 03/22/2025 DICTATING PHYSICIAN: SUZAN HOLM DO CARDIAC CATHETERIZATION REPORT REFERRING PHYSICIAN: Earline Chen MD. CLINICAL HISTORY: This 79-year-old woman has a prior history of LAD diagonal stenting in 2021. She now has occasional chest pain and echocardiography demonstrates moderate pulmonary hypertension. PROCEDURES PERFORMED: * Right heart catheterization. * Left heart catheterization. * Left ventriculography. * Selective coronary arteriography. * PTCA/stent placement (mid RCA). * A 60-minute conscious sedation supervision. DESCRIPTION OF PROCEDURE: The patient was sedated with fentanyl and Versed. She was then prepared and draped in the usual manner. The right, an 18-gauge angio sheath was placed in the right arm basilic vein prior to coming to the crime lab technician. Using Seldinger technique, a 6-Cymro sheath was placed in the right radial artery, 200 mcg of nitroglycerin and 2.5 mg of verapamil were directly injected into the radial artery and 5,000 units were given in a peripheral IV. Right heart catheterization was performed using a 6-Cymro [place]-Katalina catheter. Cardiac output was determined using a thermal dilution technique. Left heart catheterization and left ventriculography were performed using a 6-Cymro pigtail catheter. Coronary arteriography was performed using a 6-Cymro Kimny catheter for the left coronary artery and a 6-Cymro #4 right Laura catheter for the right coronary artery. PTCA/STENT PLACEMENT: The patient was given an additional 5,000 units of heparin. The right coronary was engaged with a 6-Cymro XB RCA side-hold catheter. The ChoICE PT2 guidewire was passed across a stenosis in the mid vessel and the tip was positioned distally. The lesion was then directly stented with a 3.5 x 22 mm [place] drug-eluting stent deployed at 18 atmospheres (approximately 3.8 mm in diameter). After test injections demonstrated stability of the treated area, final arteriography was performed. The arterial sheath was removed and a Vasc band was applied. The venous sheath was removed and direct pressure was applied. RESULTS: HEMODYNAMIC DATA: The mean right atrial pressure was 8 mmHg. Right ventricular pressure was 49/10 mmHg. Pulmonary capillary wedge pressure was 21 mmHg. Left ventricular end diastolic pressure was 17 mmHg. Pulmonary arterial pressure was 58/14 mmHg. There was essentially no gradient across the aortic valve. LEFT VENTRICULOGRAM: The left ventriculogram was technically satisfactory. The estimated ejection fraction was 60%. There was calcification in both the left and right coronary arteries. LEFT MAIN CORONARY ARTERY: The left main was a large unobstructed vessel trifurcating into left anterior descending intermediate and circumflex coronary arteries. LEFT ANTERIOR DESCENDING CORONARY ARTERY: The LAD was a large transapical vessel with a large diagonal branch taking its origin from the mid LAD. A stent within the proximal end of the diagonal was widely patent. There were no obstructive lesions elsewhere within the system. INTERMEDIATE ARTERY: The intermediate was a small unobstructed vessel. CIRCUMFLEX CORONARY ARTERY: The circumflex was a large main stem vessel. There were no diagonals; however, there was a large multi-segmented posterolateral branch. Near the origin of the posterolateral, there was a narrowing of about 30-40%, but no outright obstructive lesions were present. RIGHT CORONARY ARTERY: The right coronary artery is a large main stem vessel. There was a medium-sized posterior descending branch and a first posterolateral. There was a very small caliber second posterolateral. The proximal right coronary had a focal stenosis of about 70%. The large first posterolateral branch had 2 areas of approximately 50% narrowing but no high-grade stenoses. Following PCI of the prox.mid RCA, there was no significant residual stenosis and brisk runoff distally. CONCLUSIONS: * Atherosclerotic coronary artery disease manifested as follows: * A. A 30-40% distal circumflex coronary artery. * B. A 70-75% proximal right coronary. * C. Approximately 50% (x 2) norrowing involving a large posterolateral branch of the RCA. * Successful direct stenting of the proximal right coronary stenosis following stent deployment. There was no significant residual stenosis. CRISTOPHER flow before and after the intervention was graded as 3. * Stent previously placed in the principal LAD diagonal is widely patent. * Moderate pulmonary hypertension. Pulmonary arterial pressure was 58/14 mmHg. The patient's oxygen saturation was consistently above 92% for the entire procedure. * Left ventricular function was normal. The estimated LVEF was 60%. RECOMMENDATIONS: Ongoing medical therapy. SUZAN HOLM DO TID: [id number] RECEIPT: [id number] KADE MTDD
== END 2025-03-22 15:00 | disposition home or self-care (01) ==
LOC: SSTAY O 08:01
PROVIDERS: ATTEND Internal Medicine Cardiovascular Disease
DX: I21.4 Non-ST elevation (NSTEMI) myocardial infarction (principal); I25.10 Atherosclerotic heart disease of native coronary artery without angina pectoris; I49.3 Ventricular premature depolarization; I11.0 Hypertensive heart disease with heart failure; I50.811 Acute right heart failure; I48.0 Paroxysmal atrial fibrillation; E78.5 Hyperlipidemia, unspecified; Z79.2 Long term (current) use of antibiotics; Z79.899 Other long term (current) drug therapy; Z98.49 Cataract extraction status, unspecified eye; Z98.890 Other specified postprocedural states; Z88.6 Allergy status to analgesic agent; Z88.1 Allergy status to other antibiotic agents
CPT/HCPCS: 36415; 80053; 83735; 85025; 85610; 93005; 93460; 99152; 99153; A6258; A6402; C1751; C1769; C1874; C1894; C9600; J1644; J2003; J2250; J3010; J3490; J7030; J7070; Q0163; Q9967; Z7610; 85007